=== PATIENT | male | born 1950 | race Caucasian/White ===

== ENCOUNTER → 2016-06-07 | Outpatient (CLI) | payer MEDICARE ==
[~2016-06-07] MED LIST: ACET-654 PO; ALLO15TA PO; ASCO25TA PO; FINA5TAB2 PO; FLOM5CAP PO; FLON1SPR; HYDR1OI TOP; INDA125TA PO; IRBE300T10 PO; MULT1TAB18 PO; NIZO2SHA TOP; VITA20008 PO
[2016-06-07 14:28] LABS: ALBUMIN 4.4 GM/DL (3.2-5.2); ALBUMIN/GLOBULIN RATIO 1.47 (1.00-1.93); ALKALINE PHOSPHATASE 52 U/L (45-117); ALT/SGPT 64 U/L (12-78); ANION GAP 7 MEQ/L (8-16); AST/SGOT 29 U/L (15-37); BILIRUBIN,TOTAL 0.8 MG/DL (0.2-1.0); BLOOD UREA NITROGEN 18 MG/DL (7-18); CALCIUM LEVEL 8.8 MG/DL (8.8-10.2); CARBON DIOXIDE LEVEL 30 MEQ/L (21-32); CHLORIDE LEVEL 102 MEQ/L (98-107); CHOLESTEROL LEVEL 179 MG/DL (<200); CREATININE FOR GFR 0.93 MG/DL (0.70-1.30); GLOMERULAR FILTRATION RATE > 60.0 (>49); GLUCOSE, FASTING 155 MG/DL (80-110); POTASSIUM SERUM 4.2 MEQ/L (3.5-5.1); SODIUM LEVEL 139 MEQ/L (136-145); TOTAL PROTEIN 7.4 GM/DL (6.4-8.2); TRIGLYCERIDES LEVEL 230 MG/DL (<150); URIC ACID 5.3 MG/DL (3.5-7.2)
== END ==
LOC: M WUC 09:04
PROVIDERS: ATTEND Internal Medicine
DX: Z00.00 Encounter for general adult medical examination without abnormal findings (principal); E78.5 Hyperlipidemia, unspecified; M10.00 Idiopathic gout, unspecified site; E03.9 Hypothyroidism, unspecified; E55.9 Vitamin D deficiency, unspecified; Z79.899 Other long term (current) drug therapy

== ENCOUNTER 2016-11-16 19:43 | Emergency (ER) | payer MEDICARE ==
[~2016-11-16] VITALS: Ht 182.9 cm; Wt 119.1 kg
[~2016-11-16 19:43] MED LIST changes: -ACET-654 PO; +ACET1TAB17 PO
[2016-11-16] MEDS ORDERED: SF1.1GEL (19:58)
[2016-11-16] MEDS ORDERED: ELIQ5TAB (19:58)
[2016-11-16] MEDS ORDERED: VESI5TAB2 (19:58)
[2016-11-16 20:30] LABS: BASO % 0.3 % (0.0-1.0); EOS # 0.1 10^3/uL (0.0-0.50); EOS % 0.4 % (0.0-3.0); IMMATURE GRANULOCYTE % 0.4 % (0-0); LYMPH # 0.7 10^3/uL (1.5-4.5); MEAN CORPUSCULAR HEMOGLOBIN 31.9 pg (27.0-33.0); MEAN CORPUSCULAR HGB CONC 35.8 g/dl (32.0-36.5); MONO # 0.7 10^3/uL (0.0-0.8); MONO % 5.8 % (0.0-5.0); NEUTROPHILS # 10.8 10^3/uL (1.8-7.7); NEUTROPHILS % 87.1 % (36.0-66.0); PLATELET COUNT, AUTOMATED 133 10^3/uL (150-450); RED CELL DISTRIBUTION WIDTH 12.3 % (11.5-14.5); WHITE BLOOD COUNT 12.4 10^3/uL (4.0-10.0)
[2016-11-16 20:35] LABS: ADD MORPHOLOGY? NO
[2016-11-16 20:41] LABS: INR 1.09
[2016-11-16 20:55] LABS: ALBUMIN 4.3 GM/DL (3.2-5.2); ALBUMIN/GLOBULIN RATIO 1.1 (1.00-1.93); BILIRUBIN,DIRECT 0.2 MG/DL (0.0-0.2); BILIRUBIN,TOTAL 0.8 MG/DL (0.2-1.0); CALCIUM LEVEL 9.4 MG/DL (8.8-10.2); CREATININE FOR GFR 1.44 MG/DL (0.70-1.30); GLOMERULAR FILTRATION RATE 52.1 (>49); POTASSIUM SERUM 3.7 MEQ/L (3.5-5.1); TOTAL PROTEIN 8.2 GM/DL (6.4-8.2)
--- NOTE | 2016-11-16 21:10 | REPUSA ---
CT of the head Clinical history: fall. Technique: Multiple axial CT images were obtained through the head without administration of contrast . Findings: The ventricles and sulci are symmetric bilaterally. There is no evidence of acute hemorrhag e or infarct. There is no midline shift, mass effect, or extra-axial fluid collection. The osseous st ructures are unremarkable. The visualized paranasal sinuses and mastoid air cells are clear. Impression: Negative study.
[2016-11-16] MEDS ORDERED: ISOVUE-370 76% 100ML VIAL (Q9967) As Ordered ONE (21:14)
[2016-11-16] MEDS ORDERED: NS 500 ML IV ONE ×2 (21:15→22:30)
[2016-11-16] MEDS ORDERED: MORPHINE 4 MG/ML 1ML SYRINGE IV ONE (21:45)
--- NOTE | 2016-11-16 22:00 | REPUSA ---
CT of the abdomen and pelvis with contrast Clinical statement: Pain. Fall. Technique: Multiple axial CT images were obtained from the base of the lungs through the floor of the pelvis utilizing 5 mm axial slices after administration of oral and nonionic intravenous contrast. C oronal and sagittal reconstructions were also obtained. No comparison is available. Findings: Chest: The visualized lung bases are clear. Abdomen: The liver is enlarged, measuring 26.9 cm in longest diameter. Diffuse low attenuation of the hepatic parenchyma is noted. No focal hepatic masses are seen. There is a tiny gallstone in the neck of the gallbladder. The spleen, pancreas, kidneys, and adrenal glands are unremarkable. The aorta is within normal limits. There is no evidence of abdominal lymphadenopathy or ascites. Pelvis: The bowel is unremarkable, with no obstructive or inflammatory changes. The appendix is tanner l. The urinary bladder is within normal limits. The other pelvic structures appear grossly intact. Th ere is no evidence of pelvic lymphadenopathy or ascites. Bones: There are no suspicious osseous abnormalities seen. Impression: 1. No acute traumatic injury appreciated. 2. Hepatomegaly with diffuse fatty infiltration of the liver. 3. Cholelithiasis without evidence of acute cholecystitis. 4. No obstructive or inflammatory bowel changes.
[2016-11-16] MEDS ORDERED: AMLO10TA PO (22:49)
[2016-11-16] MEDS ORDERED: SITA50TAB PO (22:50)
[2016-11-16] MEDS ORDERED: PERC5TAB12 PO (22:50)
[2016-11-16] MEDS ORDERED: COLA100C5 PO (22:51)
[2016-11-16 23:36] VITALS: BP 172/80
[2016-11-16] MEDS ORDERED: NORCO 5/325MG TABLET (BULK FOR ED) PO ONE (23:45)
--- NOTE | 2016-11-17 08:31 | ECGEPIP ---
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
== END 2016-11-17 00:04 | disposition home or self-care (01) ==
LOC: M ED 19:43
DX: S37.009A Unspecified injury of unspecified kidney, initial encounter (principal); W14.XXXA Fall from tree, initial encounter; Y92.099 Unspecified place in other non-institutional residence as the place of occurrence of the external cause; Y93.9 Activity, unspecified; Y99.9 Unspecified external cause status; N17.9 Acute kidney failure, unspecified; E11.9 Type 2 diabetes mellitus without complications; I48.91 Unspecified atrial fibrillation; I10 Essential (primary) hypertension; R00.1 Bradycardia, unspecified; R16.0 Hepatomegaly, not elsewhere classified; K76.0 Fatty (change of) liver, not elsewhere classified; K80.20 Calculus of gallbladder without cholecystitis without obstruction; Z85.6 Personal history of leukemia; Z92.21 Personal history of antineoplastic chemotherapy; Z95.0 Presence of cardiac pacemaker; Z79.899 Other long term (current) drug therapy; Z88.0 Allergy status to penicillin
CPT/HCPCS: 70450; 74177; 80048; 80076; 81001; 83690; 85025; 85610; 93005; 93041; 96374; 99285; Q9967

== ENCOUNTER → 2016-11-29 | Outpatient (CLI) | payer MEDICARE ==
[~2016-11-29] MED LIST changes: +AMLO10TA PO; +COLA100C5 PO; +ELIQ5TAB; +PERC5TAB12 PO; +SF1.1GEL; +SITA50TAB PO; +VESI5TAB2
== END ==
LOC: M WUC 11:08
PROVIDERS: ATTEND Internal Medicine Hematology
DX: E55.9 Vitamin D deficiency, unspecified (principal); I48.0 Paroxysmal atrial fibrillation; I10 Essential (primary) hypertension

== ENCOUNTER → 2016-11-29 | Outpatient (CLI) | payer MEDICARE ==
[2016-11-29 15:12] LABS: ANION GAP 6 MEQ/L (8-16); BLOOD UREA NITROGEN 15 MG/DL (7-18); CALCIUM LEVEL 9.8 MG/DL (8.8-10.2); CARBON DIOXIDE LEVEL 30 MEQ/L (21-32); CHLORIDE LEVEL 103 MEQ/L (98-107); CREATININE FOR GFR 0.84 MG/DL (0.70-1.30); GLOMERULAR FILTRATION RATE > 60.0 (>49); GLUCOSE, FASTING 235 MG/DL (80-110); POTASSIUM SERUM 3.8 MEQ/L (3.5-5.1); SODIUM LEVEL 139 MEQ/L (136-145)
== END ==
LOC: M WUC 11:04
PROVIDERS: ATTEND Internal Medicine
DX: I10 Essential (primary) hypertension (principal)

== ENCOUNTER → 2016-11-29 | Outpatient (CLI) | payer MEDICARE ==
[2016-11-29 14:49] LABS: MEAN CORPUSCULAR HEMOGLOBIN 32.3 pg (27.0-33.0); MEAN CORPUSCULAR HGB CONC 35.1 g/dl (32.0-36.5); RED CELL DISTRIBUTION WIDTH 12.3 % (11.5-14.5); WHITE BLOOD COUNT 4.4 10^3/uL (4.0-10.0)
[2016-11-29 15:11] LABS: ALBUMIN 4.2 GM/DL (3.2-5.2); ANION GAP 6 MEQ/L (8-16); BLOOD UREA NITROGEN 15 MG/DL (7-18); CALCIUM LEVEL 9.4 MG/DL (8.8-10.2); CARBON DIOXIDE LEVEL 30 MEQ/L (21-32); CHLORIDE LEVEL 102 MEQ/L (98-107); CREATININE FOR GFR 0.86 MG/DL (0.70-1.30); GLOMERULAR FILTRATION RATE > 60.0 (>49); GLUCOSE, FASTING 231 MG/DL (80-110); PHOSPHORUS LEVEL 2.4 MG/DL (2.5-4.9); POTASSIUM SERUM 3.8 MEQ/L (3.5-5.1); SODIUM LEVEL 138 MEQ/L (136-145)
== END ==
LOC: M WUC 11:00
PROVIDERS: ATTEND Nurse Practitioner Family
DX: I48.0 Paroxysmal atrial fibrillation (principal)

== ENCOUNTER → 2017-01-08 | Outpatient (CLI) | payer MEDICARE ==
[2017-01-08 12:59] LABS: ANION GAP 6 MEQ/L (8-16); BLOOD UREA NITROGEN 20 MG/DL (7-18); CALCIUM LEVEL 9.2 MG/DL (8.8-10.2); CARBON DIOXIDE LEVEL 31 MEQ/L (21-32); CHLORIDE LEVEL 105 MEQ/L (98-107); CREATININE FOR GFR 0.83 MG/DL (0.70-1.30); GLOMERULAR FILTRATION RATE > 60.0 (>49); GLUCOSE, FASTING 149 MG/DL (80-110); POTASSIUM SERUM 3.9 MEQ/L (3.5-5.1); SODIUM LEVEL 142 MEQ/L (136-145)
== END ==
LOC: M WUC 10:04
PROVIDERS: ATTEND Nurse Practitioner Family
DX: I10 Essential (primary) hypertension (principal)

== ENCOUNTER → 2017-06-10 | Outpatient (CLI) | payer MEDICARE ==
[2017-06-10 12:40] LABS: CHOLESTEROL LEVEL 152 MG/DL (<200); HDL CHOLESTEROL 34 MG/DL (>40); NON-HDL-C 118 MG/DL; TRIGLYCERIDES LEVEL 220 MG/DL (<150)
[2017-06-10 12:47] LABS: CREATININE, URINE 94.9 MG/DL; MALB URINE SIEMENS 18.3 MG/L; MAU/CREAT RATIO 19.2 MCG/MG (0.0-30.0)
[2017-06-10 15:22] LABS: ESTIMATED AVERAGE GLUCOSE 103 MG/DL (60-110); HEMOGLOBIN A1c 5.2 %
== END ==
LOC: M WUC 09:56
DX: I11.9 Hypertensive heart disease without heart failure (principal)
CPT/HCPCS: 83036

== ENCOUNTER → 2017-06-10 | Outpatient (CLI) | payer MEDICARE ==
[2017-06-10 12:40] LABS: ANION GAP 6 MEQ/L (8-16); BLOOD UREA NITROGEN 19 MG/DL (7-18); CALCIUM LEVEL 9.6 MG/DL (8.8-10.2); CARBON DIOXIDE LEVEL 30 MEQ/L (21-32); CHLORIDE LEVEL 103 MEQ/L (98-107); CREATININE FOR GFR 0.85 MG/DL (0.70-1.30); GLOMERULAR FILTRATION RATE > 60.0 (>49); GLUCOSE, FASTING 124 MG/DL (70-100); POTASSIUM SERUM 4.5 MEQ/L (3.5-5.1); SODIUM LEVEL 139 MEQ/L (136-145)
== END ==
LOC: M WUC 10:01
DX: I11.9 Hypertensive heart disease without heart failure (principal)

== ENCOUNTER → 2017-12-25 | Outpatient (CLI) | payer MEDICARE | LOC: M WUC 11:21 | DX: M51.36 Other intervertebral disc degeneration, lumbar region (principal); M51.37 Other intervertebral disc degeneration, lumbosacral region; M25.78 Osteophyte, vertebrae; M12.88 Other specific arthropathies, not elsewhere classified, other specified site; M54.5 Low back pain | CPT/HCPCS: 72110 ==

== ENCOUNTER → 2018-04-18 | Outpatient (CLI) | payer MEDICARE ==
[~2018-04-18] MED LIST changes: -ACET1TAB17 PO; +ACET1TAB55 PO; +FLOM0.4C39 PO; -FLOM5CAP PO
--- NOTE | 2018-04-18 13:53 | REP ---
Clinical: Subacute pain without history of trauma. Technique: AP view of the pelvis with neutral and frog lateral views of the left hip. Findings: Generalized age-related degenerative changes are appreciated. No acute fracture dislocation. No periarticular calcifications, or erosive changes. Impression: Generalized degenerative changes. No acute fracture or dislocation. Electronically Signed by Alfred Connelly MD 04/18/2018 01:45 P
== END ==
LOC: M WUC 12:58
PROVIDERS: ATTEND Physician Assistant
DX: M16.12 Unilateral primary osteoarthritis, left hip (principal)

== ENCOUNTER 2018-11-13 14:02 | Emergency (ER) | payer MEDICARE ==
[~2018-11-13] VITALS: Ht 182.9 cm; Wt 118.2 kg
[~2018-11-13 14:02] MED LIST changes: -ALLO15TA PO; +ALLO300T2 PO; -ASCO25TA PO; -ELIQ5TAB; +ELIQ5TAB PO; -HYDR1OI TOP; +HYDR1OIN2 TOP; +VITA1TAB23 PO
[2018-11-13] MEDS ORDERED: ACET-908 PO (14:30)
[2018-11-13] MEDS ORDERED: CARV12.5 PO (14:30)
[2018-11-13] MEDS ORDERED: LISI40TA PO (14:30)
[2018-11-13] MEDS ORDERED: IMBR1CAP PO (14:30)
[2018-11-13 15:51] LABS: HEMATOCRIT 39.5 % (42.0-52.0); HEMOGLOBIN 12.2 g/dl (13.5-17.5); MEAN CORPUSCULAR HEMOGLOBIN 31.7 pg (27.0-33.0); MEAN CORPUSCULAR HGB CONC 30.9 g/dl (32.0-36.5); MEAN CORPUSCULAR VOLUME 102.6 fl (80.0-96.0); RED BLOOD COUNT 3.85 10^6/uL (4.30-6.10)
--- NOTE | 2018-11-13 16:07 | REP ---
Left forearm: Two views. History: Swelling and pain after a fall. Findings: AP and lateral views of the left forearm demonstrate diffuse soft tissue swelling. There is spurring of the distal ulna and mild medial and lateral epicondylar spurring are noted at the elbow. Impression: No fracture noted. There is osteoarthritic spurring of the proximal and distal ulna. There is medial and lateral epicondylar spurring. There is diffuse moderate soft tissue swelling. Electronically Signed by Raymon Escalera MD 11/13/2018 03:59 P
--- NOTE | 2018-11-13 16:08 | REP ---
Left arm: Two views. History: Swelling and pain after fall. Findings: AP and lateral views of the left humerus demonstrate a pacemaker. There is osteoarthritic hypertrophy and end sclerosis at the AC joint. The glenohumeral articulation is normally aligned. Epicondylar spurring is noted. No fractures seen. Impression: Osteoarthritic changes. No fracture visible. Electronically Signed by Raymon Escalera MD 11/13/2018 04:00 P
[2018-11-13 16:15] LABS: PLATELET COUNT, AUTOMATED 96 10^3/uL (150-450)
[2018-11-13 16:17] LABS: ERYTHROCYTE SEDIMENTATION RATE 33 mm/hr (0-20)
[2018-11-13 16:18] LABS: BLOOD UREA NITROGEN 22 MG/DL (7-18); C REACTIVE PROTEIN QUANTITATIV 1.34 MG/DL (0.00-0.30); CALCIUM LEVEL 9.2 MG/DL (8.8-10.2); CARBON DIOXIDE LEVEL 28 MEQ/L (21-32); CHLORIDE LEVEL 100 MEQ/L (98-107); CREATININE FOR GFR 0.97 MG/DL (0.70-1.30); GLOMERULAR FILTRATION RATE > 60.0 (>49); GLUCOSE, FASTING 119 MG/DL (70-100); POTASSIUM SERUM 3.9 MEQ/L (3.5-5.1); SODIUM LEVEL 136 MEQ/L (136-145)
[2018-11-13 16:21] LABS: LYMPHOCYTES 97 % (16-44); MONOCYTES 1 % (0-5); NEUTROPHILS 2 % (28-66); PLATELET ESTIMATE DECREASED (NORMAL); SMUDGE CELLS 4+
--- NOTE | 2018-11-13 16:42 | REP ---
Left upper extremity deep vein duplex ultrasound for thrombus: The deep veins demonstrate normal compression, normal Doppler color flow and normal Doppler waveforms with respiration augmentation at multiple levels from the brachial veins to the jugular vein. A pacemaker is noted within the subclavian vein. Impression: There is no left upper extremity deep vein thrombus. Electronically Signed by Haider Argueta MD 11/13/2018 04:33 P
--- NOTE | 2018-11-13 16:45 | REP ---
Ultrasonography of the soft tissues at the left elbow: The patient fell and struck left elbow 1 week O and complains of increasing pain, redness, swelling and warmth in the area. Ultrasonography of this area of the elbow identifies a 8-0.8 x 1.0-0.97 complex fluid collection. There is diffuse soft tissue edema adjacent to this collection. With color Doppler assessment there is hyperemia in the surrounding soft tissues. The findings are compatible with hematoma versus abscess versus bursitis. Electronically Signed by Haider Argueta MD 11/13/2018 04:36 P
--- NOTE | 2018-11-13 16:49 | REP ---
Left elbow series: Five views. History: Swelling and pain after fall. Findings: Five views of the left elbow demonstrate diffuse moderate soft tissue swelling about the medial aspect of the elbow including the distal arm and the proximal forearm. There is no evidence of joint effusion. No fracture is seen. Mild coronoid process and medial epicondylar spurring are seen. Impression: Moderate soft tissue swelling diffusely about the medial aspect of the arm, elbow and forearm. Spurring of the coronoid process and medial epicondyle. No acute bony abnormality seen. Electronically Signed by Raymon Escalera MD 11/13/2018 04:54 P
[2018-11-13 16:52] LABS: ALBUMIN 4.5 GM/DL (3.2-5.2); ALT/SGPT 20 U/L (12-78); BILIRUBIN,DIRECT 0.2 MG/DL (0.0-0.2); BILIRUBIN,TOTAL 0.8 MG/DL (0.2-1.0); TOTAL PROTEIN 7.5 GM/DL (6.4-8.2)
[2018-11-13 21:00] VITALS: BP 168/78
[2018-11-13] MEDS ORDERED: CLINDAMYCIN 150 MG CAP PO ONE ×2 (21:00→21:45)
[2018-11-13] MEDS ORDERED: CLEO300C2 PO (21:24)
--- NOTE | 2018-11-14 06:44 | ED PDOC ---
Post-Departure Follow-Up dr epps faxed formal report of extrem us for fu Alma Wilhelm MD Nov 14, 2018 06:44
== END 2018-11-13 21:43 | disposition home or self-care (01) ==
LOC: M ED 14:02
DX: L03.114 Cellulitis of left upper limb (principal); S50.312A Abrasion of left elbow, initial encounter; W19.XXXA Unspecified fall, initial encounter; Y92.9 Unspecified place or not applicable; R60.0 Localized edema; I10 Essential (primary) hypertension; R73.03 Prediabetes; Z88.1 Allergy status to other antibiotic agents; Z79.899 Other long term (current) drug therapy; Z95.0 Presence of cardiac pacemaker

== ENCOUNTER → 2019-06-11 | Outpatient (CLI) | payer MEDICARE ==
[~2019-06-11] MED LIST changes: +ACET-908 PO; +CARV12.5 PO; +CLEO300C2 PO; +IMBR1CAP PO; -IRBE300T10 PO; +IRBE300T7 PO; +LISI40TA PO
[2019-06-11 12:50] LABS: HEMATOCRIT 41.8 % (42.0-52.0); HEMOGLOBIN 14.2 g/dl (13.5-17.5); MEAN CORPUSCULAR HEMOGLOBIN 31.7 pg (27.0-33.0); MEAN CORPUSCULAR VOLUME 93.3 fl (80.0-96.0); PLATELET COUNT, AUTOMATED 100 10^3/uL (150-450); RED BLOOD COUNT 4.48 10^6/uL (4.30-6.10)
[2019-06-11 13:10] LABS: WHITE BLOOD COUNT 23.7 10^3/uL (4.0-10.0)
[2019-06-11 13:12] LABS: ANISOCYTOSIS 1+; LYMPHOCYTES 79 % (16-44); MONOCYTES 4 % (0-5); NEUTROPHILS 17 % (28-66); POLYCHROMASIA 1+; SMUDGE CELLS 1+
[2019-06-11 13:13] LABS: PLATELET ESTIMATE DECREASED (NORMAL)
[2019-06-11 13:22] LABS: ALBUMIN 4.2 GM/DL (3.2-5.2); ALT/SGPT 27 U/L (12-78); BILIRUBIN,TOTAL 0.8 MG/DL (0.2-1.0); BLOOD UREA NITROGEN 25 MG/DL (7-18); CALCIUM LEVEL 9.2 MG/DL (8.8-10.2); CARBON DIOXIDE LEVEL 28 MEQ/L (21-32); CHLORIDE LEVEL 101 MEQ/L (98-107); CREATININE FOR GFR 1.01 MG/DL (0.70-1.30); GLOMERULAR FILTRATION RATE > 60.0 (>49); GLUCOSE, FASTING 238 MG/DL (70-100); LDH LACTATE DEHYDROGENASE 129 U/L (87-241); POTASSIUM SERUM 4.1 MEQ/L (3.5-5.1); SODIUM LEVEL 135 MEQ/L (136-145); TOTAL PROTEIN 7.5 GM/DL (6.4-8.2)
== END ==
LOC: M LAB 12:26
DX: C91.10 Chronic lymphocytic leukemia of B-cell type not having achieved remission (principal)

== ENCOUNTER 2019-10-24 17:55 | Emergency (ER) | payer MEDICARE ==
[~2019-10-24] VITALS: Ht 182.9 cm; Wt 120.2 kg
[~2019-10-24 17:55] MED LIST changes: +ASCO250T20 PO; -VITA1TAB23 PO
[2019-10-24] MEDS ORDERED: traMADol 50 MG TAB PO ONE ×2 (19:30→20:30)
[2019-10-24] MEDS ORDERED: ROBA750T4 PO (20:11)
[2019-10-24] MEDS ORDERED: ULTR50TA8 PO (20:11)
[2019-10-24 20:26] VITALS: BP 156/70
== END 2019-10-24 20:35 | disposition home or self-care (01) ==
LOC: M ED 17:55
DX: M62.830 Muscle spasm of back (principal); T21.24XA Burn of second degree of lower back, initial encounter; Z79.01 Long term (current) use of anticoagulants; Z88.1 Allergy status to other antibiotic agents; Z79.899 Other long term (current) drug therapy; Y92.9 Unspecified place or not applicable; Y93.9 Activity, unspecified; Y99.9 Unspecified external cause status; T31.0 Burns involving less than 10% of body surface

== ENCOUNTER → 2020-07-05 | Outpatient (CLI) | payer MEDICARE ==
[~2020-07-05] MED LIST changes: -ACET-908 PO; +ACET-910 PO; -LISI40TA PO; +LISI40TA4 PO; +ROBA750T4 PO; +ULTR50TA8 PO
[2020-07-05 12:33] LABS: CHOLESTEROL RISK RATIO 3.904 (<5)
[2020-07-05 12:41] LABS: CREATININE, URINE 65.1 MG/DL; MALB URINE SIEMENS 6.6 MG/L; MAU/CREAT RATIO 10.1 MCG/MG (0.0-30.0); TOTAL 25(OH) VITAMIN D 32.4 NG/ML (30.0-100.0)
[2020-07-05 13:24] LABS: HEMOGLOBIN A1c 8.5 %
== END ==
LOC: M WUC 10:26
PROVIDERS: ATTEND Internal Medicine
DX: Z51.81 Encounter for therapeutic drug level monitoring (principal); E11.9 Type 2 diabetes mellitus without complications; M81.0 Age-related osteoporosis without current pathological fracture; Z79.899 Other long term (current) drug therapy

== ENCOUNTER 2020-10-16 17:58 | Observation (INO) | payer MEDICARE ==
[~2020-10-16] VITALS: Ht 182.9 cm; Wt 114.3 kg
[2020-10-16] MEDS ORDERED: GABA-283 PO (18:58)
[2020-10-16] MEDS ORDERED: ACETAMINOPHEN TAB 650MG DOSE (2X325MG) PO ONE (19:35)
--- NOTE | 2020-10-16 19:57 | REP ---
INDICATION: fever covid positive COMPARISON: None. TECHNIQUE: Portable AP view of the chest FINDINGS: Patchy bilateral airspace disease consistent with multifocal pneumonia and COVID-19 pulmonary disease. No effusion. No pneumothorax. Mediastinum and cardiac silhouette are normal. Skeletal structures intact. IMPRESSION: Patchy bilateral airspace disease consistent with multifocal pneumonia and COVID-19 pulmonary disease. <Electronically signed by Alfred Connelly > 10/16/201952
[2020-10-16 20:13] LABS: BASO % 0.2 % (0.0-1.0); EOS % 0.2 % (0.0-3.0); HEMOGLOBIN 12.9 g/dl (13.5-17.5); LYMPH # 0.5 10^3/uL (1.5-5.0); LYMPH % 11.5 % (24.0-44.0); MEAN CORPUSCULAR HEMOGLOBIN 30.9 pg (27.0-33.0); MEAN CORPUSCULAR HGB CONC 33.9 g/dl (32.0-36.5); MEAN CORPUSCULAR VOLUME 91.1 fl (80.0-96.0); MONO # 0.5 10^3/uL (0.0-0.8); MONO % 11.7 % (2.0-8.0); NEUTROPHILS # 3.2 10^3/uL (1.5-8.5); NEUTROPHILS % 75.7 % (36.0-66.0); RED BLOOD COUNT 4.17 10^6/uL (4.30-6.10); WHITE BLOOD COUNT 4.2 10^3/uL (4.0-10.0)
[2020-10-16 20:43] LABS: PLATELET COUNT, AUTOMATED 79 10^3/uL (150-450)
[2020-10-16 20:46] LABS: ALBUMIN 3.3 GM/DL (3.2-5.2); ALT/SGPT 38 U/L (12-78); BILIRUBIN,TOTAL 0.5 MG/DL (0.2-1.0); BLOOD UREA NITROGEN 25 MG/DL (7-18); C REACTIVE PROTEIN QUANTITATIV 7.91 MG/DL (0.00-0.30); CALCIUM LEVEL 7.9 MG/DL (8.8-10.2); CARBON DIOXIDE LEVEL 23 MEQ/L (21-32); CHLORIDE LEVEL 105 MEQ/L (98-107); CK-MB VALUE MASS 1.2 NG/ML (<3.6); CPK CREATINE PHOSPHOKINASE 58 U/L (39-308); CREATININE FOR GFR 1.06 MG/DL (0.70-1.30); FERRITIN 1013 NG/ML (26-388); GLOMERULAR FILTRATION RATE > 60.0 (>42); GLUCOSE, FASTING 183 MG/DL (70-100); LDH LACTATE DEHYDROGENASE 226 U/L (87-241); MB/CK RELATIVE INDEX 2.07 (< OR =4); POTASSIUM SERUM 3.9 MEQ/L (3.5-5.1); SODIUM LEVEL 135 MEQ/L (136-145); TOTAL PROTEIN 6.5 GM/DL (6.4-8.2); TROPONIN I 0.02 NG/ML (< 0.10)
[2020-10-16 20:48] LABS: INR 1.23; PROTHROMBIN TIME 15.9 SECONDS (12.7-14.5)
[2020-10-16 20:49] LABS: PARTIAL THROMBOPLASTIN TIME 51.6 SECONDS (25.9-37.0)
[2020-10-16 20:52] LABS: D-DIMER QUANT 534.38 ng/ml (<500)
[2020-10-16] MEDS ORDERED: ISOVUE-370 76% 100ML VIAL As Ordered ONE (20:59)
--- NOTE | 2020-10-16 21:56 | REPVR ---
PROCEDURE INFORMATION: Exam: CTA Chest With Contrast Exam date and time: 10/16/2020 9:07 PM Age: 70 years old Clinical indication: SOB, COVID positive TECHNIQUE: Imaging protocol: Computed tomographic angiography of the chest with contrast. 3D rendering (Not supervised by radiologist): MIP and/or 3D reconstructed images were created by the technologist. Radiation optimization: All CT scans at this facility use at least one of these dose optimization techniques: automated exposure control; mA and/or kV adjustment per patient size (includes targeted exams where dose is matched to clinical indication); or iterative reconstruction. Contrast material: ISOVUE 370; Contrast volume: 75 ml; Contrast route: INTRAVENOUS (IV); COMPARISON: 1. CR Chest, 1 view 10/16/2020 7:[address] ABD/PEL W/IV CONTRAST ONLY 11/16/2016 9:20:49 PM FINDINGS: Tubes, catheters and devices: There is a left subclavian pacemaker device with leads in the right atrium and right ventricle. Pulmonary arteries: There is no pulmonary embolism in the main, lobar, or segmental pulmonary arteries. The timing of the contrast bolus was suboptimal for the assessment of the subsegmental pulmonary arteries, which are poorly opacified. Aorta: The thoracic aorta is intact and patent. There is no thoracic aortic aneurysm, pseudoaneurysm, penetrating atherosclerotic ulcer, intramural hematoma, or dissection. Great vessels off aortic arch: The brachiocephalic artery, imaged proximal portions of the common carotid arteries, imaged proximal portions of the vertebral arteries, and subclavian arteries are intact. No stenosis or occlusion of these vessels is noted. Incidental note is made of a bovine aortic arch, with common origin of the brachiocephalic artery and left common carotid artery from the aortic arch, which is a normal variant. Incidental note is made that the left vertebral artery originates directly from the aortic arch posterior to the origin of the left subclavian artery. Thyroid: Unremarkable. Trachea: Normal. Bronchial tree: Patent. Lungs: There are ground-glass opacities in a predominantly peripheral distribution in both lungs with areas of intralobular septal thickening ("crazy-paving"?) and superimposed consolidation. Pleural spaces: Normal. No pneumothorax or pleural effusion. Heart: No cardiomegaly or pericardial effusion. The ratio of the diameter of the right ventricle to the diameter of the left ventricle measures less than 1, which is within normal limits and there is no CT evidence for a right ventricular strain. There are coronary artery calcifications. Mediastinal space: No mediastinal mass, fluid collection, or pneumomediastinum. There is a small sliding hiatal hernia. Lymph nodes: There are subcentimeter mediastinal, bilateral hilar, and bilateral axillary lymph nodes. However, no abnormally enlarged lymph nodes measuring greater than 1 cm in short axis are noted. Liver: The attenuation of the liver is lower compared to the spleen, which can be seen with fatty liver infiltration. The liver was not fully imaged. Adrenal glands: There is a 1.5 cm left adrenal nodule, which measures approximately 26 Hounsfield units and has increased in size from [address] abdomen and pelvis on 11/16/2016 (image 229 of the axial series 401). The adrenals were not fully imaged. Bones/joints: There is no fracture or dislocation. No suspicious osteolytic or osteoblastic lesion. There are bridging paraspinal osteophytes at multiple contiguous levels in the thoracic spine, which are findings compatible with diffuse idiopathic skeletal hyperostosis. Soft tissues: Unremarkable. IMPRESSION: 1. No pulmonary embolism in the main, lobar, or segmental pulmonary arteries. The timing of the contrast bolus was suboptimal for the assessment of the subsegmental pulmonary arteries, which are poorly opacified. 2. Ground-glass opacities in a predominantly peripheral distribution in both lungs with areas of intralobular septal thickening ("crazy-paving"?) and superimposed consolidation, which are findings in keeping with the patient's history of COVID positive pneumonia. 3. 1.5 cm left adrenal nodule, which has increased in size from [address] abdomen and pelvis on 11/16/2016. If the patient has no cancer history, then consider follow-up non-emergent adrenal CT or resection. If the patient has a history of cancer, then consider biopsy or PET/CT. (Reference: Misti) 4. Fatty liver. COMMENTS: Consistent with the [employer]'s Incidental Findings Committee white paper (J Am Anant Radiol 2017): Any incidental adrenal lesion less than or equal to 1 cm is likely benign. No follow-up imaging is recommended for these lesions per consensus recommendations based on imaging criteria. Further lab evaluation could be pursued if warranted based on clinical findings. REFERENCES: Misti SAEZ, et al. Management of Incidental Adrenal Masses: A White Paper of the ACR Incidental Findings Committee. J Am Anant Radiol. 2017;14(8):0771-5098. Electronically signed by: Andreas Packer On 10/16/2020 21:56:26 PM
[2020-10-16] MEDS ORDERED: INDA25TAB PO (22:46)
[2020-10-16] MEDS ORDERED: GABA-282 PO (22:46)
[2020-10-16] MEDS ORDERED: D31000TA2 PO (22:46)
[2020-10-16] MEDS ORDERED: ALLO300T2 PO (22:46)
[2020-10-16] MEDS ORDERED: CARV25TA PO (22:46)
[2020-10-16] MEDS ORDERED: AMLO1TAB25 PO (22:46)
[2020-10-16] MEDS ORDERED: METF-838 PO (22:46)
[2020-10-16] MEDS ORDERED: THERTAB52 PO (22:46)
[2020-10-16] MEDS ORDERED: HOME MED LIST COMPLETE! XX SCH (22:50)
[2020-10-16] MEDS ORDERED: COMBIVENT RESPIMAT 100-20MCG INHALER 4GM INH PRN (23:20)
[2020-10-16] MEDS ORDERED: GLUCAGON INJ 1MG VIAL SC PRN (23:20)
[2020-10-16] MEDS ORDERED: DEXTROSE 50% 50 ML SYRINGE IV PRN (23:20)
[2020-10-16] MEDS ORDERED: GLUCOSE 4GM CHEW TABLET PO PRN (23:20)
--- NOTE | 2020-10-16 23:40 | HPEPDOC ---
General Date of Admission 10/16/20 Date of Service: Oct 16, 2020 Chief Complaint The patient is a 70-year-old male admitted with a reason for visit of +Covid 10/14/20. Source: Patient History of Present Illness Pranay Stoll is a 70yo M who is younger than his age but does ill appearance. Past medical history includes CLLsees oncologist in [place] (completed chemo 2 years ago except on continuous imbruvica) , diabetes, CLAUDIA, pacer, hypertension,gout. Patient reports that past week he noticed having some productive cough/phlegm production and associated nausea. He decided to go to urgent care on Saturday as he started having a fever and they tested him for Covid which was positive as patient has been taking Tylenol and the fever did not fariha he came to ED. Patient did not have Covid vaccine. Patient past 3 days endorses shortness of breath/ LINCOLN, fever, fatigue, productive cough. Patient tolerating room air 96%. Not tachycardic or tachypneic. He is notably hype rtensive 200/95 during admission. Patient reports he has been compliant with all his medications and his Systolic blood pressure typically runs in the 150s. He is about due for his home Coreg dose. He reports that he did not have time to update his oncologist on Saturday regarding his Covid diagnosis and had no further recommendations for any monoclonal antibodies at present, patient reports that he would only like additional medication such as monoclonal antibodies or remdesivir if he should become hypoxic. Of note, WBCs 12.4, no lactic acidosis chest x-ray + opacities. D-dimer elevated. CTA chest negative for PE but positive bilateral opacities questionable superimposed infection. Procalcitonin pending. Blood cultures pending. Patient will be observed for further evaluation management presenting concerns. Home Medications Scheduled Amlodipine Besylate (Amlodipine Besylate) 10 Mg Tablet, 10 MG PO DAILY, (Reported) Apixaban (Eliquis) 5 Mg Tab, 5 MG PO BID, (Reported) Carvedilol (Carvedilol) 25 Mg Tablet, 25 MG PO BID, (Reported) Cholecalciferol (Vitamin D3) (Vitamin D3) 1,000 Unit Tablet, 2,000 UNITS PO DAILY, (Reported) Gabapentin (Gabapentin) 300 Mg Capsule, 300 MG PO Q8H, (Reported) Ibrutinib (Imbruvica) 140 Mg Capsule, 420 MG PO QHS, (Reported) Indapamide (Indapamide) 2.5 Mg Tablet, 2.5 MG PO DAILY, (Reported) Lisinopril (Lisinopril) 40 Mg Tablet, 40 MG PO DAILY, (Reported) Metformin HCl (Metformin HCl ER) 500 Mg Tab.er.24h, 500 MG PO BID, (Reported) Multivitamin,Therapeutic (Thera-Tabs) 1 Each Tablet, 1 TAB PO DAILY, (Reported) allopurinoL (allopurinoL) 300 Mg Tablet, 300 MG PO DAILY, (Reported) Scheduled PRN Acetaminophen (Acetaminophen) 325 Mg Tablet, 650 MG PO Q8HP PRN for pain or fever, (Reported) Allergies Coded Allergies: clarithromycin (Verified Adverse Reaction, Mild, DIARRHEA, 11/13/18) Past Medical History Medical History CLLsees oncologist in [place] (completed chemo 2 years ago except on continuous imbruvica , diabetes, CLAUDIA, pacer, hypertension,gout Surgical History Pacemaker, TURP Family History Significant Family History: No pertinent family hx Social History Alcohol: Denies Drugs: denies Recent Travel/Sick Contacts: Denies: Recent travel, Recent sick contacts Psychosocial History: No pertinent psych hx , darvin A-FIB/CHADSVASC A-FIB History Current/History of A-Fib/PAF?: Yes Current PO Anticoag Therapy: Yes Review of Systems Constitutional: Reports: Fever, Fatigue; Denies: Chills, Night Sweats Eyes: Denies: Pain, Vision change ENT: Denies: Head Aches, Ear Pain, Dysphagia Skin: Denies: Rash, Lesions, Breakdown Pulmonary: Reports: Dyspnea, Cough Cardiovascular: Denies: Chest Pain, Palpitations, Orthopnea, Paroxysmal Noc. Dyspnea, Lt Headedness Gastrointestinal: Reports: Nausea; Denies: Vomiting, Abdominal Pain, Diarrhea Genitourinary: Denies: Dysuria, Frequency, Incontinence, Retention Hematologic: Denies: Bruising, Bleeding Excessively Musculoskeletal: Denies: Neck Pain, Back Pain, Joint Pain, Muscle Pain, Spasms Neurological: Denies: Weakness, Numbness, Change in speech, Confusion Psych: Reports: Mood Normal; Denies: Depression, Memory Issues Physical Examination General Exam: Positive: Alert, Cooperative, No Acute Distress Eye Exam: Positive: PERRLA, Conjunctiva & lids normal, EOMI; Negative: Sclera icteric ENT Exam: Positive: Atraumatic, Mucous membr. moist/pink, Pharynx Normal Neck Exam: Positive: Supple; Negative: JVD, thyromegaly Chest Exam: Positive: Rales Heart Exam: Positive: Rate Normal, Regular Rhythm, Normal S1, Normal S2; Negative: Murmurs, Rubs Telemetry: Positive: No significant arrhythmia Abdomen Exam: Positive: Normal bowel sounds, Soft; Negative: Tenderness, Hepatospenomegaly Extremity Exam: Positive: Normal pulses; Negative: Clubbing, Cyanosis, Edema Skin Exam: Positive: Nl turgor and temperature; Negative: Breakdown, Lesion Neuro Exam: Positive: Normal Gait, Normal Speech, Cranial Nerves 3-12 NL, Reflexes 2+ Psych Exam: Positive: Mental status NL, Mood NL, Oriented x 3 Vital Signs Vital Signs Date Time Temp Pulse Resp B/P (MAP) Pulse Ox O2 Delivery O2 Flow Rate FiO2 10/16/20 22:15 74 17 81 Room Air 10/16/20 21:00 192/84 (120) 10/16/20 17:58 101.1 Laboratory Data Labs 24H Laboratory Tests 2 10/16/20 19:44: Immature Granulocyte % (Auto) 0.7, Neutrophils (%) (Auto) 75.7H, Lymphocytes (%) (Auto) 11.5L, Monocytes (%) (Auto) 11.7H, Eosinophils (%) (Auto) 0.2, Basophils (%) (Auto) 0.2, Neutrophils # (Auto) 3.2, Lymphocytes # (Auto) 0.5L, Monocytes # (Auto) 0.5, Eosinophils # (Auto) 0.0, Basophils # (Auto) 0.0, Nucleated Red Blood Cells % (auto) 0.0, Immature Platelet Fraction 15.5H, Prothrombin Time 15.9H, Prothromb Time International Ratio 1.23, Activated Partial Thromboplast Time 51.6H, Fibrinogen 732H, D-Dimer, Quantitative 534.38H, Anion Gap 7L, Glomerular Filtration Rate > 60.0, Lactic Acid Level 1.6, Calcium Level 7.9L, M agnesium Level 2.0, Ferritin 1013H, Total Bilirubin 0.5, Aspartate Amino Transf (AST/SGOT) 22, Alanine Aminotransferase (ALT/SGPT) 38, Alkaline Phosphatase 58, Lactate Dehydrogenase 226, Total Creatine Kinase 58, Creatine Kinase MB 1.2, Creatine Kinase MB Relative Index 2.07, Troponin I 0.02, C-Reactive Protein, Quantitative 7.91H, Total Protein 6.5, Albumin 3.3, Albumin/Globulin Ratio 1.0, Procalcitonin <0.05 10/16/20 20:00: SARS Antigen (LFIA) POSITIVEH CBC/BMP Laboratory Tests 10/16/20 19:44 Microbiology Microbiology 10/16/20 Blood Culture, Received Pending 10/16/20 Blood Culture, Received Pending Assessment/Plan 1. Hypertensive urgency: Blood pressure elevated 198/82. Patient has a history of hypertension and takes multiple antihypertensives-reports compliance. -Monitor patient, continue home medications: Coreg, Lozol, lisinopril and Norvasc. -Patient with frequent coughing fits and this may be increasing his blood pressure during monitoring as noted during exam. - needed antihypertensive for systolic blood pressure greater than 160. 2. Covid pneumonia: CT chest positive opacities with possible superimposed infection. Patient tolerating room air. Procalcitonin pending. -Monitor patient respiratory status. -Monitor for worsening signs symptoms of infection; should procalcitonin be elevated will provide empiric antibiotic coverage. -Symptom management/supportive careantitussives and Combivent as needed -A.m. labs -Consider if patient begins becoming hypoxic, escalation to inpatient Covid regimen include steroids and remdesivir. -Consider clearance for monoclonal antibody in patient CLL who is already taking IMBRUTINIB. He reports his oncologist is in [place]. 3. Diabetes: Patient typically takes Metformin, on hold. Plan for Accu-Cheks before meals at bedtime and sliding scale insulin. Diabetic diet. A.m. labs. 4. Anemia in patient with CLL: Hemoglobin 12.9. Last lab work reveals baseline hemoglobin 12-14. Monitor for any overt bleeding. A.m. lab work. 5. PAF status post pacer: Telemetry. Continue Eliquis. DVT: Eliquis, SCD CODE STATUS: Full code Dispo planning: Anticipate home in a.m. -pending patient response. Plan / VTE VTE Prophylaxis Ordered?: Yes JEF PÉREZ NP Oct 16, 2020 23:35
[2020-10-17] VITALS (9 sets, daily range): BP systolic 135–156; BP diastolic 71–81; O2SAT 92–94
[2020-10-17] MEDS ORDERED: ACETAMINOPHEN TAB 650MG DOSE (2X325MG) PO PRN
[2020-10-17] MEDS: guaiFENesin 200 MG TAB PO SCH ×2 (02:05→09:18)
[2020-10-17] MEDS: APIXABAN 5 MG TAB (ELIQUIS) PO SCH ×2 (02:06→09:19)
[2020-10-17] MEDS: CARVedilol 12.5 MG TAB PO SCH ×2 (02:06→09:18)
[2020-10-17] MEDS: GABAPENTIN 300 MG CAP PO SCH ×2 (02:06→05:29)
[2020-10-17] MEDS ORDERED: ACETAMINOPHEN 500 MG TAB PO ONE (06:00)
--- NOTE | 2020-10-17 06:20 | ECGEPIP ---
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
[2020-10-17] MEDS ORDERED: HumaLOG INSULIN (NovoLOG) PER UNIT SC SCH ×2 (07:30→21:00)
[2020-10-17 08:07] LABS: BASO % 0.2 % (0.0-1.0); HEMATOCRIT 33.2 % (42.0-52.0); HEMOGLOBIN 11.4 g/dl (13.5-17.5); LYMPH # 0.6 10^3/uL (1.5-5.0); MEAN CORPUSCULAR HEMOGLOBIN 31.2 pg (27.0-33.0); MEAN CORPUSCULAR HGB CONC 34.3 g/dl (32.0-36.5); MONO # 0.7 10^3/uL (0.0-0.8); MONO % 12.9 % (2.0-8.0); NEUTROPHILS # 3.9 10^3/uL (1.5-8.5); NEUTROPHILS % 75.5 % (36.0-66.0); RED BLOOD COUNT 3.65 10^6/uL (4.30-6.10); WHITE BLOOD COUNT 5.1 10^3/uL (4.0-10.0)
[2020-10-17 08:21] LABS: PLATELET COUNT, AUTOMATED 80 10^3/uL (150-450)
[2020-10-17 08:30] LABS: BLOOD UREA NITROGEN 21 MG/DL (7-18); CALCIUM LEVEL 7.8 MG/DL (8.8-10.2); CARBON DIOXIDE LEVEL 22 MEQ/L (21-32); CHLORIDE LEVEL 104 MEQ/L (98-107); CREATININE FOR GFR 0.97 MG/DL (0.70-1.30); GLOMERULAR FILTRATION RATE > 60.0 (>42); GLUCOSE, FASTING 176 MG/DL (70-100); MAGNESIUM LEVEL 1.9 MG/DL (1.8-2.4); NT-PRO BNP 502 PG/ML (<125); POTASSIUM SERUM 3.4 MEQ/L (3.5-5.1); SODIUM LEVEL 134 MEQ/L (136-145); TROPONIN I 0.04 NG/ML (< 0.10)
[2020-10-17] MEDS ORDERED: allopurinoL 300 MG TAB PO SCH (09:00)
[2020-10-17] MEDS ORDERED: MULTIVITAMINS/MINERALS THERAP 1 TAB PO SCH (09:00)
[2020-10-17] MEDS ORDERED: VITAMIN D 1,000 INTERNATIONAL UNITS TABLET PO SCH (09:00)
[2020-10-17] MEDS ORDERED: INDAPAMIDE 1.25MG TABLET PO SCH (09:00)
[2020-10-17] MEDS ORDERED: lisinopriL 40 MG TAB PO SCH (09:00)
[2020-10-17] MEDS ORDERED: CHLO25TA PO (10:01)
[2020-10-17] MEDS ORDERED: POTASSIUM CHLORIDE 10 MEQ SR TABLET PO ONE (10:05)
[2020-10-17] MEDS ORDERED: CHLORTHALIDONE 25 MG TAB PO ONE (12:00)
--- NOTE | 2020-10-17 12:23 | DS.PDOC ---
Discharge Summary General Date of Admission Oct 16, 2020 at 17:59 Date of Discharge 10/17/20 Discharge Summary PROCEDURES PERFORMED DURING STAY: [None]. 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 HISTORY OF PRESENT ILLNESS: 70yo M who is younger than his age but does ill appearance. Past medical history includes CLLsees oncologist in [place] (completed chemo 2 years ago except on continuous imbruvica) , diabetes, CLAUDIA, pacer, hypertension,gout. Patient reports that past week he noticed having some productive cough/phlegm production and associated nausea. He decided to go to urgent care on Saturday as he started having a fever and they tested him for Covid which was positive as patient has been taking Tylenol and the fever did not fariha he came to ED. Patient did not have Covid vaccine. Patient past 3 days endorses shortness of breath/ LINCOLN, fever, fatigue, productive cough. Patient tolerating room air 96%. Not tachycardic or tachypneic. He is notably hypertensive 200/95 during admission. Patient reports he has been compliant with all his medications and his Systolic blood pressure typically runs in the 150s. He is about due for his home Coreg dose. He reports that he did not have time to update his oncologist on Saturday regarding his Covid diagnosis and had no further recommendations for any monoclonal antibodies at present, patient reports that he would only like additional medication such as monoclonal antibodies or remdesivir if he should become hypoxic. Of note, WBCs 12.4, no lactic acidosis chest x-ray + opacities. D-dimer elevated. CTA chest negative for PE but positive bilateral opacities questionable superimposed infection. Procalcitonin negative. Bl HOSPITAL COURSE: During hospital stay blood pressure was stabilized. In the morning patient was on room air. Afebrile He signed a consent for monoclonal antibody infusion. I added chlorthalidone to his medical regimen Patient was found to have increased adrenal nodule. Recommend follow-up with PCP for work-up DISCHARGE MEDICATIONS: Please see below. ALLERGIES: Please see below. PHYSICAL EXAMINATION ON DISCHARGE: VITAL SIGNS: Please see below. General Exam: Positive: Alert, Cooperative, No Acute Distress Eye Exam: Positive: PERRLA, Conjunctiva & lids normal, EOMI; Negative: Sclera icteric ENT Exam: Positive: Atraumatic, Mucous membr. moist/pink, Pharynx Normal Neck Exam: Positive: Supple; Negative: JVD, thyromegaly Chest Exam: Positive: Rales Heart Exam: Positive: Rate Normal, Regular Rhythm, Normal S1, Normal S2; Negative: Murmurs, Rubs Telemetry: Positive: No significant arrhythmia Abdomen Exam: Positive: Normal bowel sounds, Soft; Negative: Tenderness, Hepatospenomegaly Extremity Exam: Positive: Normal pulses; Negative: Clubbing, Cyanosis, Edema Skin Exam: Positive: Nl turgor and temperature; Negative: Breakdown, Lesion Neuro Exam: Positive: Normal Gait, Normal Speech, Cranial Nerves 3-12 NL, Reflexes 2+ Psych Exam: Positive: Mental status NL, Mood NL, Oriented x 3 LABORATORY DATA: Please see below. IMAGING: [facility] NAME: CHRISTINA PACHECO DATE OF : 1950 BUSINESS NUMBER: [id number] AGE: 70 SEX: M REPORT #: [id number] ROOM: ED TECHNOLOGIST: [place] [id number] DOCTOR: BLANCHE MULLINS MD Ordered for Date&Time: 10/16/202052 cc: [~ rep ct ivnm] Service Date&Time: 10/16/202106 This report is in Signed status. Interpretation performed by [facility]. Thank you for having your radiology procedures performed at [facility] RADIOLOGY REPORT Date&Time printed: [~ rep prt dt last] [~ rep prt tm last] Page 3 of 3 [place] [address] RADIOLOGY REPORT This report is in Signed status. Interpretation performed by [facility]. Thank you for having your radiology procedures performed at [facility] RADIOLOGY REPORT Date&Time printed: [~ rep prt dt last] [~ rep prt tm last] Page 1 of 3 IMPRESSION: 1. No pulmonary embolism in the main, lobar, or segmental pulmonary arteries. The timing of the contrast bolus was suboptimal for the assessment of the subsegmental pulmonary arteries, which are poorly opacified. 2. Ground-glass opacities in a predominantly peripheral distribution in both lungs with areas of intralobular septal thickening ("crazy-paving"?) and superimposed consolidation, which are findings in keeping with the patient's history of COVID positive pneumonia. 3. 1.5 cm left adrenal nodule, which has increased in size from [address] abdomen and pelvis on 11/16/2016. If the patient has no cancer history, then consider follow-up non-emergent adrenal CT or resection. If the patient has a history of cancer, then consider biopsy or PET/CT. (Reference: Misti) 4. Fatty liver. COMMENTS: Consistent with the [employer]'s Incidental Findings Committee white paper (J Am Anant Radiol 2017): Any incidental adrenal lesion less than or equal to 1 cm is likely benign. No follow-up imaging is recommended for these lesions per consensus recommendations based on imaging criteria. Further lab evaluation could be pursued if warranted based on clinical findings. REFERENCES: Misti SAEZ, et al. Management of Incidental Adrenal Masses: A White Paper of the ACR Incidental Findings Committee. J Am Anant Radiol. 2017;14(8):2780-9529. Electronically signed by: Andreas Greenwood On 10/16/2020 21:56:26 PM DD: ANDREAS GREENWOOD MD 10/16/202106 DT: JENS 10/16/202155 DS: ARIEL 10/16/202155 [~ rep ct labl] PROGNOSIS: Fair ACTIVITY: [As tolerated]. DIET: Cardiac DISPOSITION: 30 Still A Patient. DISCHARGE INSTRUCTIONS: Discharge for monoclonal antibody infusion ITEMS TO FOLLOWUP ON ON OUTPATIENT: Follow-up with build master/oncologist and PCP Work-up for increased adrenal node in the outpatient settings DISCHARGE CONDITION: [Stable]. TIME SPENT ON DISCHARGE: 40 minutes. Vital Signs/I&Os Vital Signs Date Time Temp Pulse Resp B/P (MAP) Pulse Ox O2 Delivery O2 Flow Rate FiO2 10/17/20 09:19 63 153/71 10/17/20 08:00 98.4 20 94 Nasal Cannula 2.0 I&O- Last 24 Hours up to 6 AM 10/17/20 06:00 Intake Total 300 ml Output Total 0 ml Balance 300 ml Laboratory Data Labs 24H Laboratory Tests 2 10/16/20 19:44: Immature Granulocyte % (Auto) 0.7, Neutrophils (%) (Auto) 75.7H, Lymphocytes (%) (Auto) 11.5L, Monocytes (%) (Auto) 11.7H, Eosinophils (%) (Auto) 0.2, Basophils (%) (Auto) 0.2, Neutrophils # (Auto) 3.2, Lymphocytes # (Auto) 0.5L, Monocytes # (Auto) 0.5, Eosinophils # (Auto) 0.0, Basophils # (Auto) 0.0, Nucleated Red Blood Cells % (auto) 0.0, Immature Platelet Fraction 15.5H, Prothrombin Time 15.9H, Prothromb Time International Ratio 1.23, Activated Partial Thromboplast Time 51.6H, Fibrinogen 732H, D-Dimer, Quantitative 534.38H, Anion Gap 7L, Glomerular Filtration Rate > 60.0, Lactic Acid Level 1.6, Calcium Level 7.9L, Magnesium Level 2.0, Ferritin 1013H, Total Bilirubin 0.5, Aspartate Amino Transf (AST/SGOT) 22, Alanine Aminotransferase (ALT/SGPT) 38, Alkaline Phosphatase 58, Lactate Dehydrogenase 226, Total Creatine Kinase 58, Creatine Kinase MB 1.2, Creatine Kinase MB Relative Index 2.07, Troponin I 0.02, C-Reactive Protein, Quantitative 7.91H, Total Protein 6.5, Albumin 3.3, Albumin/Globulin Ratio 1.0, Procalcitonin <0.05 10/16/20 20:00: SARS Antigen (LFIA) POSITIVEH 10/17/20 07:31: Immature Granulocyte % (Auto) 0.4, Neutrophils (%) (Auto) 75.5H, Lymphocytes (%) (Auto) 11.0L, Monocytes (%) (Auto) 12.9H, Eosinophils (%) (Auto) 0.0, Basophils (%) (Auto) 0.2, Neutrophils # (Auto) 3.9, Lymphocytes # (Auto) 0.6L, Monocytes # (Auto) 0.7, Eosinophils # (Auto) 0.0, Basophils # (Auto) 0.0, Nucleated Red Blood Cells % (auto) 0.0, Anion Gap 8, Glomerular Filtration Rate > 60.0, Calcium Level 7.8L, Magnesium Level 1.9, Troponin I 0.04#, C-Reactive Protein, Quantitative 10.40H, CJ-Hzy-M-Type Natriuretic Peptide 502H CBC/BMP Laboratory Tests 10/16/20 19:44 10/17/20 07:31 Microbiology Microbiology 10/16/20 Blood Culture, Received Pending 10/16/20 Blood Culture, Received Pending Discharge Medications Scheduled Amlodipine Besylate (Amlodipine Besylate) 10 Mg Tablet, 10 MG PO DAILY, (Reported) Apixaban (Eliquis) 5 Mg Tab, 5 MG PO BID, (Reported) Carvedilol (Carvedilol) 25 Mg Tablet, 25 MG PO BID, (Reported) Chlorthalidone (Chlorthalidone) 25 Mg Tablet, 25 MG PO BID Cholecalciferol (Vitamin D3) (Vitamin D3) 1,000 Unit Tablet, 2,000 UNITS PO DAILY, (Reported) Gabapentin (Gabapentin) 300 Mg Capsule, 300 MG PO Q8H, (Reported) Ibrutinib (Imbruvica) 140 Mg Capsule, 420 MG PO QHS, (Reported) Lisinopril (Lisinopril) 40 Mg Tablet, 40 MG PO DAILY, (Reported) Metformin HCl (Metformin HCl ER) 500 Mg Tab.er.24h, 500 MG PO BID, (Reported) Multivitamin,Therapeutic (Thera-Tabs) 1 Each Tablet, 1 TAB PO DAILY, (Reported) allopurinoL (allopurinoL) 300 Mg Tablet, 300 MG PO DAILY, (Reported) Scheduled PRN Acetaminophen (Acetaminophen) 325 Mg Tablet, 650 MG PO Q8HP PRN for pain or fever, (Reported) Allergies Coded Allergies: pneumococcal vaccine (Verified Allergy, Unknown, 10/17/20) clarithromycin (Verified Adverse Reaction, Mild, DIARRHEA, 11/13/18) RAE TEMPLETON DO Oct 17, 2020 12:22
[2020-10-18] MEDS ORDERED: CHLORTHALIDONE 25 MG TAB PO SCH (09:00)
== END 2020-10-17 10:39 | disposition still patient (30) ==
LOC: M ED 17:58 → M ED INP 17:59 → ENRESERV 10-17 00:06 → M 4MAIN 10-17 01:19
PROVIDERS: ADMIT Family Medicine; ATTEND Family Medicine
DX: J12.82 Pneumonia due to coronavirus disease 2019 (principal); U07.1 COVID-19; I16.0 Hypertensive urgency; I48.0 Paroxysmal atrial fibrillation; I10 Essential (primary) hypertension; E27.9 Disorder of adrenal gland, unspecified; E11.9 Type 2 diabetes mellitus without complications; G47.33 Obstructive sleep apnea (adult) (pediatric); M10.9 Gout, unspecified; Z95.0 Presence of cardiac pacemaker; D63.0 Anemia in neoplastic disease; C91.10 Chronic lymphocytic leukemia of B-cell type not having achieved remission; Z92.21 Personal history of antineoplastic chemotherapy; Z79.01 Long term (current) use of anticoagulants; Z79.899 Other long term (current) drug therapy; Z88.7 Allergy status to serum and vaccine; Z88.1 Allergy status to other antibiotic agents

== ENCOUNTER 2020-10-17 10:40 | Outpatient (CLI) | payer MEDICARE ==
[~2020-10-17] VITALS: Ht 182.9 cm; Wt 114.3 kg
[~2020-10-17 10:40] MED LIST changes: +AMLO1TAB25 PO; +CARV25TA PO; +CHLO25TA PO; +D31000TA2 PO; +GABA-282 PO; +GABA-283 PO; +INDA25TAB PO; +METF-838 PO; +THERTAB52 PO
[2020-10-17] MEDS ORDERED: NS 1,000 ML IV SCH (11:00)
[2020-10-17 11:44] VITALS: BP 137/65
[2020-10-17] MEDS ORDERED: ALBUTEROL 90 MCG/ACT 8GM HFA INHALER INH PRN (12:00)
[2020-10-17] MEDS ORDERED: methylPREDNISolone 125MG 2ML VIAL IV PRN (12:00)
[2020-10-17] MEDS ORDERED: CASIRIVIMAB/IMDEVIMAB 1,200 MG in NS 250 ML IV ONE (12:00)
[2020-10-17] MEDS ORDERED: diphenhydrAMINE 50MG/ML VIAL (J1200) IV PRN (12:00)
[2020-10-17] MEDS ORDERED: ALBUTEROL SULFATE 2.5 MG/0.5 ML INH NEB SOLN INH PRN (12:00)
[2020-10-17] MEDS ORDERED: EPINEPHrine INJ 1 MG/ML 1ML AMP IM PRN (12:00)
[2020-10-17 12:05] VITALS: BP 134/60
== END 2020-10-17 14:30 | disposition home or self-care (01) ==
LOC: M 4MAIN 10:40 → M OPCLI4 10:40
PROVIDERS: ATTEND Internal Medicine
DX: U07.1 COVID-19 (principal); Z88.1 Allergy status to other antibiotic agents; Z88.7 Allergy status to serum and vaccine

== ENCOUNTER 2020-10-19 14:00 | Inpatient (IN) | payer MEDICARE ==
[~2020-10-19] VITALS: Ht 182.9 cm; Wt 113.6 kg
--- NOTE | 2020-10-19 16:27 | REP ---
INDICATION: CHEST PAIN. COMPARISON: Comparison portable chest x-ray October 16, 2020. TECHNIQUE: Portable upright AP chest radiograph. FINDINGS: Progressive patchy could pulmonary parenchymal consolidation is seen right upper lobe, right lower lobe, left lower lobe consistent with pneumonia. These infiltrates are more opaque and larger than on the prior study. Heart size is borderline. A bipolar pacemaker is seen in place. There are surgical clips in the supraclavicular soft tissues on the right. IMPRESSION: Radiographically progressive bilateral pneumonia. <Electronically signed by Franck Escalera > 10/19/20 [id number]
[2020-10-19 16:59] LABS: BASO % 0.4 % (0.0-1.0); EOS % 0.4 % (0.0-3.0); HEMATOCRIT 33.2 % (42.0-52.0); HEMOGLOBIN 11.5 g/dl (13.5-17.5); LYMPH # 0.6 10^3/uL (1.5-5.0); LYMPH % 11.4 % (24.0-44.0); MEAN CORPUSCULAR HEMOGLOBIN 31.3 pg (27.0-33.0); MEAN CORPUSCULAR HGB CONC 34.6 g/dl (32.0-36.5); MEAN CORPUSCULAR VOLUME 90.2 fl (80.0-96.0); MONO # 0.7 10^3/uL (0.0-0.8); MONO % 12.3 % (2.0-8.0); NEUTROPHILS # 4.2 10^3/uL (1.5-8.5); PLATELET COUNT, AUTOMATED 104 10^3/uL (150-450); RED BLOOD COUNT 3.68 10^6/uL (4.30-6.10); WHITE BLOOD COUNT 5.5 10^3/uL (4.0-10.0)
[2020-10-19 17:17] LABS: C REACTIVE PROTEIN QUANTITATIV 12.9 MG/DL (0.00-0.30); MAGNESIUM LEVEL 2.2 MG/DL (1.8-2.4)
[2020-10-19 17:24] LABS: ALBUMIN 2.7 GM/DL (3.2-5.2); ALT/SGPT 47 U/L (12-78); BILIRUBIN,DIRECT 0.2 MG/DL (0.0-0.2); BILIRUBIN,TOTAL 0.7 MG/DL (0.2-1.0); BLOOD UREA NITROGEN 25 MG/DL (7-18); CALCIUM LEVEL 7.8 MG/DL (8.8-10.2); CARBON DIOXIDE LEVEL 24 MEQ/L (21-32); CHLORIDE LEVEL 103 MEQ/L (98-107); CK-MB VALUE MASS < 1.0 NG/ML (<3.6); CPK CREATINE PHOSPHOKINASE 69 U/L (39-308); CREATININE FOR GFR 0.94 MG/DL (0.70-1.30); GLOMERULAR FILTRATION RATE > 60.0 (>42); GLUCOSE, FASTING 177 MG/DL (70-100); MB/CK RELATIVE INDEX 1.45 (< OR =4); NT-PRO BNP 85 PG/ML (<125); POTASSIUM SERUM 3.9 MEQ/L (3.5-5.1); SODIUM LEVEL 133 MEQ/L (136-145); TROPONIN I < 0.02 NG/ML (< 0.10)
[2020-10-19] MEDS ORDERED: ISOVUE-370 76% 100ML VIAL As Ordered ONE (18:01)
--- NOTE | 2020-10-19 20:12 | ECGEPIP ---
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
--- NOTE | 2020-10-19 21:09 | REPVR ---
PROCEDURE INFORMATION: Exam: CTA Chest With Contrast Exam date and time: 10/19/2020 8:23 PM Age: 70 years old Clinical indication: Shortness of breath; Additional info: SOB, hemoptysis TECHNIQUE: Imaging protocol: Computed tomographic angiography of the chest with contrast. 3D rendering (Not supervised by radiologist): MIP and/or 3D reconstructed images were created by the technologist. Radiation optimization: All CT scans at this facility use at least one of these dose optimization techniques: automated exposure control; mA and/or kV adjustment per patient size (includes targeted exams where dose is matched to clinical indication); or iterative reconstruction. Contrast material: ISOVUE 370; Contrast volume: 75 ml; Contrast route: INTRAVENOUS (IV); COMPARISON: CT ANGIO CHEST 10/16/2020 8:59 PM FINDINGS: Pulmonary arteries: There are no pulmonary emboli. Aorta: There is fusiform dilatation of the ascending thoracic aorta which measures 4.1 cm. maximally. There is no dissection or saccular component. Lungs: Multiple bilateral geographic ground-glass, semi-solid and solid pulmonary parenchymal opacities several with rounded configuration. Findings consistent with multifocal pneumonitis, likely viral. Pleural spaces: Unremarkable. No pneumothorax. No pleural effusion. Heart: Unremarkable. No cardiomegaly. No pericardial effusion. Lymph nodes: Multiple mediastinal lymph nodes measuring up to 1.8 cm in the retrocaval pretracheal area, likely postinflammatory. Gallbladder and bile ducts: Cholelithiasis. Bones/joints: The spine demonstrates mild degenerative changes. Soft tissues: Unremarkable. IMPRESSION: 1. Multiple bilateral geographic ground-glass, semi-solid and solid pulmonary parenchymal opacities several with rounded configuration. Findings consistent with multifocal pneumonitis, likely viral. 2. There is fusiform dilatation of the ascending thoracic aorta which measures 4.1 cm. maximally. There is no dissection or saccular component. 3. There are no pulmonary emboli. Electronically signed by: Rene August On 10/19/2020 21:08:50 PM
[2020-10-19] MEDS ORDERED: dexameTHASONE 20MG/5ML VIAL (J1100 PER 1MG) IV ONE (22:10)
[2020-10-19] MEDS ORDERED: guaiFENesin 200 MG TAB PO PRN (22:25)
[2020-10-19] MEDS ORDERED: DEXTROSE 50% 50 ML SYRINGE IV PRN (22:25)
[2020-10-19] MEDS ORDERED: GLUCAGON INJ 1MG VIAL SC PRN (22:25)
[2020-10-19] MEDS ORDERED: COMBIVENT RESPIMAT 100-20MCG INHALER 4GM INH PRN (22:25)
[2020-10-19] MEDS ORDERED: GLUCOSE 4GM CHEW TABLET PO PRN (22:25)
[2020-10-19] MEDS ORDERED: ACETAMINOPHEN TAB 650MG DOSE (2X325MG) PO PRN (22:25)
--- NOTE | 2020-10-19 22:31 | HPEPDOC ---
[facility] Medical History & Physical Date of Admission Oct 19, 2020 Date of Service: Oct 19, 2020 Attending Physician: CAMILLE FERNANDEZ DO History and Physical CHIEF COMPLAINT: [70 y/o male recently diagnosed with COVID19 c/o malaise, sob x7-10 days] HISTORY OF PRESENT ILLNESS: [This is a 70 y/o male with a pmh of a-fib s/p pacemaker, CLL on maintenance chemotherapy, htn, osiris on cpap, bph s/p turp, niddm2 who presents to our ED on 10/19 with a cc of malaise, sob for 7-10 days and was recently diagnosed with COVID. Patient was originally diagnosed at local urgent care after believing that he had a sinus infection. Patient states that he was sent home but continued to feel unwell so on monday 10/16 he decided to come to the ED for evaluation. Patient at that time was found to have covid pna but was not hypoxic so was kept for overnight observation and was discharged after monoclonal antibody infusion. Patient states that he has continued to feel unwell with fatigue, cough productive of yellowish sputum, fever and malaise. Patient has also developed sob that is better with rest. Patient also admits to have one large dark colored stool today, but not explicitly diarrhea. Patient, at the time of my exam, denies chest pain, chest pressure, hemoptysis, abd pain, n/v, pedal edema, calf pain. Patient states that he has received all three doses of his covid vaccine. ] PAST MEDICAL HISTORY: 1. [See HPI PAST SURGICAL HISTORY: 1. [Pacemaker placement]. 2. [TURP]. 3. [Colonoscopy]. SOCIAL HISTORY: Tobacco use:[Denies] ETOH: [Occasional] Illicit drug use: [Denies] FAMILY HISTORY: Reviewed - none pertinent ALLERGIES: Please see below. REVIEW OF SYSTEMS: CONSTITUTIONAL: [See HPI]. HEENT: [See HPI]. CARDIOVASCULAR: [Denies chest pain, palpitations]. RESPIRATORY: [See HPI]. GASTROINTESTINAL: [See HPI]. GENITOURINARY: [Denies dysuria]. SKIN: [Denies rash]. MUSCULOSKELETAL: [Denies acute joint/back pain]. NEUROLOGICAL: [Denies syncope paresthesias]. ENDOCRINE: [Hx of DM]. HEMATOLOGIC/LYMPHATIC: [Hx of CLL]. HOME MEDICATIONS: Please see below. PHYSICAL EXAMINATION: VITAL SIGNS: Please see below. GENERAL APPEARANCE: [This is an ill appearing 70 y/o male. He is alert and oriented to all questioning. He has acutely increased work of breathing.]. HEENT: [No mass or lesion. EOMI. No scleral icterus. Nares patent. Oral mucosa moist]. CARDIOVASCULAR: [Regular rate, rhythm. No murmurs, rubs, gallops]. LUNGS: [Decreased breath sounds. No wheezing, rales, rhonchi]. ABDOMEN: [Soft, nontender]. MUSCULOSKELETAL: [No joint deformity]. EXTREMITIES: [No pedal edema appreciated. No overlying skin changes. Pulses intact]. NEUROLOGICAL: [Speech clear. A+Ox3. No focal deficits]. PSYCHIATRIC: [Mood and affect appear appropriate.]. LABORATORY DATA: See below. IMAGING: [CXR: FINDINGS: Progressive patchy could pulmonary parenchymal consolidation is seen right upper lobe, right lower lobe, left lower lobe consistent with pneumonia. These infiltrates are more opaque and larger than on the prior study. Heart size is borderline. A bipolar pacemaker is seen in place. There are surgical clips in the supraclavicular soft tissues on the right. IMPRESSION: Radiographically progressive bilateral pneumonia. CTA Chest: FINDINGS: Pulmonary arteries: There are no pulmonary emboli. Aorta: There is fusiform dilatation of the ascending thoracic aorta which measures 4.1 cm. maximally. There is no dissection or saccular component. Lungs: Multiple bilateral geographic ground-glass, semi-solid and solid pulmonary parenchymal opacities several with rounded configuration. Findings consistent with multifocal pneumonitis, likely viral. Pleural spaces: Unremarkable. No pneumothorax. No pleural effusion. Heart: Unremarkable. No cardiomegaly. No pericardial effusion. Lymph nodes: Multiple mediastinal lymph nodes measuring up to 1.8 cm in the retrocaval pretracheal area, likely postinflammatory. Gallbladder and bile ducts: Cholelithiasis. Bones/joints: The spine demonstrates mild degenerative changes. Soft tissues: Unremarkable. IMPRESSION: 1. Multiple bilateral geographic ground-glass, semi-solid and solid pulmonary parenchymal opacities several with rounded configuration. Findings consistent with multifocal pneumonitis, likely viral. 2. There is fusiform dilatation of the ascending thoracic aorta which measures 4.1 cm. maximally. There is no dissection or saccular component. 3. There are no pulmonary emboli. ] MICROBIOLOGY: Please see below. ASSESSMENT: [This is a 70 y/o male with a pmh of a-fib s/p pacemaker, CLL on maintenance chemotherapy, htn, osiris on cpap, bph s/p turp, niddm2 who presents to our ED on 10/19 with a cc of malaise, sob for 7-10 days and was recently diagnosed with COVID.]. . PLAN: 1. [COVID Pneumonia - Imaging performed in the ED shows progression of COVID pneumonia - Patient hypoxic in the ED - as of the writing of this note, patient currently requiring 4L nasal cannula - Patient is at high risk for poor outcome d/t bmi, cancer, age, multiple other comorbidities - Will begin remdesevir/dexamethasone protocol - Supplemental o2 titrated to >90 - Combivents, robitussin for symptoms relief - Tylenol for fevers - trend inflammatory markers - admit to med surg for tx 2. A-fib s/p pacer - telemetry - continue eliquis, carvedilol 3. CLL - continue patients at home ibrutinib - patients current hb is 11.5 - close to his baseline - patient did c/o some dark stools, will run stool occult to r/o gi bleed 4. DM - sliding scale coverage - hypoglycemic protocol - continue gabapentin 5. HTN - continue lisinopril, amlodipine 6. Gout - continue allopurinol DVT prophylaxis - pt on eliquis]. Vital Signs Vital Signs Date Time Temp Pulse Resp B/P (MAP) Pulse Ox O2 Delivery O2 Flow Rate FiO2 10/19/20 21:31 62 19 140/63 (88) 96 Room Air 4.0 10/19/20 14:14 98.0 Laboratory Data Labs 24H Laboratory Tests 2 10/19/20 16:29: Immature Granulocyte % (Auto) 0.5, Neutrophils (%) (Auto) 75.0H, Lymphocytes (%) (Auto) 11.4L, Monocytes (%) (Auto) 12.3H, Eosinophils (%) (Auto) 0.4, Basophils (%) (Auto) 0.4, Neutrophils # (Auto) 4.2, Lymphocytes # (Auto) 0.6L, Monocytes # (Auto) 0.7, Eosinophils # (Auto) 0.0, Basophils # (Auto) 0.0, Nucleated Red Blood Cells % (auto) 0.0, Fibrinogen 831H, D-Dimer, Quantitative 1034.49H, Anion Gap 6L, Glomerular Filtration Rate > 60.0, Calcium Level 7.8L, Magnesium Level 2.2, Ferritin 1473H, Total Bilirubin 0.7, Direct Bilirubin 0.2, Aspartate Amino Transf (AST/SGOT) 47H, Alanine Aminotransferase (ALT/SGPT) 47, Alkaline Phosphatase 57, Lactate Dehydrogenase 372H, Total Creatine Kinase 69, Creatine Kinase MB < 1.0, Creatine Kinase MB Relative Index 1.45, Troponin I < 0.02, C- Reactive Protein, Quantitative 12.90H, JR-Ibs-L-Type Natriuretic Peptide 85, Total Protein 6.0L, Albumin 2.7L, Albumin/Globulin Ratio 0.8, Procalcitonin 0.05, Thyroid Stimulating Hormone (TSH) 1.650, Free Thyroxine 1.30 10/19/20 16:30: Lactic Acid Level 2.0 CBC/BMP Laboratory Tests 10/19/20 16:29 Microbiology Microbiology 10/19/20 Blood Culture, Received Pending 10/19/20 Blood Culture, Received Pending Home Medications Scheduled Amlodipine Besylate (Amlodipine Besylate) 10 Mg Tablet, 10 MG PO DAILY Apixaban (Eliquis) 5 Mg Tab, 5 MG PO BID Carvedilol (Carvedilol) 25 Mg Tablet, 25 MG PO BID Cholecalciferol (Vitamin D3) (Vitamin D3) 1,000 Unit Tablet, 2,000 UNITS PO DAILY Gabapentin (Gabapentin) 300 Mg Capsule, 300 MG PO Q8H Ibrutinib (Imbruvica) 140 Mg Capsule, 420 MG PO QHS Indapamide (Indapamide) 2.5 Mg Tablet, 2.5 MG PO DAILY Lisinopril (Lisinopril) 40 Mg Tablet, 40 MG PO DAILY Metformin HCl (Metformin HCl ER) 500 Mg Tab.er.24h, 500 MG PO BID TAKES WITH 500MG FOR 1000MG TOTAL Metformin HCl (Metformin HCl) 500 Mg Tablet, 500 MG PO BID TAKES WITH 500MG ER FOR 1000MG TOTAL Multivitamin,Therapeutic (Thera-Tabs) 1 Each Tablet, 1 TAB PO DAILY allopurinoL (allopurinoL) 300 Mg Tablet, 300 MG PO DAILY Allergies Coded Allergies: pneumococcal vaccine (Verified Allergy, Unknown, 10/17/20) clarithromycin (Verified Adverse Reaction, Mild, DIARRHEA, 11/13/18) A-FIB/CHADSVASC A-FIB History Current/History of A-Fib/PAF?: Yes Current PO Anticoag Therapy: Yes SEBAS ZARATE Oct 19, 2020 22:31
[2020-10-19] MEDS: NS 1,000 ML IV SCH (23:02)
[2020-10-19] MEDS: HumaLOG INSULIN (NovoLOG) PER UNIT SC SCH (23:02)
[2020-10-19 23:23] LABS: APPEARANCE, URINE CLEAR (CLEAR); BACTERIA, URINE AUTO NEGATIVE (NEGATIVE); BILIRUBIN, URINE AUTO NEGATIVE (NEGATIVE); BLOOD, URINE BLOOD NEGATIVE (NEGATIVE); COLOR, URINE YELLOW (YELLOW); GLUCOSE, URINE (UA) AUTO NEGATIVE (NEGATIVE); KETONE, URINE AUTO NEGATIVE (NEGATIVE); LEUKOCYTE ESTERASE, URINE AUTO NEGATIVE (NEGATIVE); NITRITE, URINE AUTO NEGATIVE (NEGATIVE); PROTEIN, URINE AUTO NEGATIVE (NEGATIVE); RBC, URINE AUTO 1 /HPF (0-3); SPECIFIC GRAVITY URINE AUTO 1.039 (1.002-1.035); SQUAMOUS EPITHELIAL CELL UR AU 0 /HPF (0-6); WBC, URINE AUTO 0 /HPF (0-3)
[2020-10-19 23:53] VITALS: BP 138/64
[2020-10-20] VITALS (11 sets, daily range): BP systolic 115–150; BP diastolic 59–67; O2SAT 92–95
[2020-10-20] MEDS ORDERED: INDA25TAB PO (01:30)
[2020-10-20] MEDS ORDERED: METF-839 PO (01:30)
[2020-10-20] MEDS ORDERED: REMDESIVIR 200 MG in NS 250 ML IV ONE (02:00)
[2020-10-20] MEDS ORDERED: HOME MED LIST COMPLETE! XX SCH (02:40)
[2020-10-20] MEDS ORDERED: SODIUM CHLORIDE 0.9% INJ 10 ML SYR IV ONE (04:00)
[2020-10-20] MEDS: GABAPENTIN 300 MG CAP PO SCH ×3 (06:29→21:03)
[2020-10-20] MEDS: NS 1,000 ML IV SCH (06:29)
[2020-10-20] MEDS: HumaLOG INSULIN (NovoLOG) PER UNIT SC SCH ×4 (09:24→21:18)
[2020-10-20] MEDS: dexameTHASONE 4 MG/ML 1ML VIAL (J1100 PER 1MG) IV SCH (09:24)
[2020-10-20] MEDS: allopurinoL 300 MG TAB PO SCH (09:25)
[2020-10-20] MEDS: lisinopriL 40 MG TAB PO SCH (09:25)
[2020-10-20] MEDS: APIXABAN 5 MG TAB (ELIQUIS) PO SCH ×2 (09:25→21:01)
[2020-10-20] MEDS: CARVedilol 12.5 MG TAB PO SCH ×2 (09:25→21:03)
[2020-10-20] MEDS: INDAPAMIDE 1.25MG TABLET PO SCH (09:25)
[2020-10-20] MEDS: DOCUSATE SODIUM 100MG CAPSULE PO SCH ×2 (09:25→21:01)
[2020-10-20 09:35] LABS: HEMATOCRIT 33.5 % (42.0-52.0); HEMOGLOBIN 11.6 g/dl (13.5-17.5); LYMPH # 0.3 10^3/uL (1.5-5.0); LYMPH % 9.4 % (24.0-44.0); MEAN CORPUSCULAR HEMOGLOBIN 31.2 pg (27.0-33.0); MEAN CORPUSCULAR HGB CONC 34.6 g/dl (32.0-36.5); MEAN CORPUSCULAR VOLUME 90.1 fl (80.0-96.0); MONO # 0.3 10^3/uL (0.0-0.8); MONO % 6.9 % (2.0-8.0); NEUTROPHILS % 83.1 % (36.0-66.0); PLATELET COUNT, AUTOMATED 100 10^3/uL (150-450); RED BLOOD COUNT 3.72 10^6/uL (4.30-6.10); WHITE BLOOD COUNT 3.6 10^3/uL (4.0-10.0)
[2020-10-20 10:02] LABS: BLOOD UREA NITROGEN 18 MG/DL (7-18); CARBON DIOXIDE LEVEL 23 MEQ/L (21-32); CHLORIDE LEVEL 103 MEQ/L (98-107); CREATININE FOR GFR 0.86 MG/DL (0.70-1.30); GLOMERULAR FILTRATION RATE > 60.0 (>42); GLUCOSE, FASTING 288 MG/DL (70-100); MAGNESIUM LEVEL 2.3 MG/DL (1.8-2.4); POTASSIUM SERUM 3.6 MEQ/L (3.5-5.1); SODIUM LEVEL 134 MEQ/L (136-145)
--- NOTE | 2020-10-20 13:37 | IPN ---
PROGRESS NOTE DATE: 10/20/2020 SUBJECTIVE: Patient denies any chest pain, pressure or tightness, shortness of breath, but has not been ambulating around the room he has mainly been using the urinal. No fever or chills overnight. Complains of loss of taste and loss of smell. Saturating 93% on 3 liters nasal cannula oxygen, was 89% on room air on admission. No other issues per nursing overnight. OBJECTIVE: Vital signs: Temperature 97, pulse 68, respiratory rate 18, blood pressure 150/67, 93% on 3 liters nasal cannula. General: Awake, alert, oriented to person, place and time, answering questions appropriately. HEENT: Moist mucous membranes. Neck: No JVD, no thyromegaly. No cervical lymphadenopathy. Lungs: Diminished, bilateral crackles. Heart: S1 and S2 sinus rhythm. Abdomen: Soft, nontender, nondistended, positive bowel sounds. Extremities: No cyanosis or clubbing. LABORATORY DATA: Laboratory data and microbiology have been reviewed. Notable for pancytopenia, hyponatremia with sodium of 134 and hyperglycemia with blood glucose of 288. IMAGING STUDIES: Reviewed. ASSESSMENT: This is a 70-year-old male with a history of CLL, follows at [facility], on chronic oral chemotherapy with ibrutinib, admitted after being found to be hypoxic with patchy pulmonary consolidation right upper lobe, lower lobe, left lower lobe consistent with pneumonia and being Coronavirus positive. Status post immunoglobulin antibody infusion as outpatient. Found to be hypoxic 89% on 2 liters nasal cannula. ACTIVE ISSUES: 1. Bilateral multifocal pneumonia secondary to Coronavirus. 2. Chronic lymphocytic leukemia on maintenance chemotherapy. 3. History of atrial fibrillation status post pacemaker. 4. Hypertension. 5. CLAUDIA on CPAP. 6. BPH status post TURP. 7. Non-insulin dependent type-2 diabetes with steroid induced hyperglycemia. PLAN: I am awaiting a call from Dr. Dhillon from [facility], , regarding patient's oral chemotherapy while he is immunocompromised with multifocal pneumonia and hypoxia, whether this oral chemotherapy ibrutinib should be continued. He is currently on I.V. remdesivir, Decadron, continued on Eliquis and supplemental oxygen to keep saturations above 94%. Fingerstick glucose was 159, this morning was 288 most likely secondary to Decadron. May need to start on insulin to keep glucose less than 180 postprandial. MTDD
--- NOTE | 2020-10-20 13:56 | IPNPDOC ---
Date Seen The patient was seen on 10/20/20. Progress Note ADDENDUM TO PROGRESS NOTE: BLANK ON PROGRESS NOTE SHOULD SAY "DR LANDRY" [phone] recommended continuing immunomodulator ibritunib. if pt worsens and needs intubation, ibritunib can be liquified and pushed through ng tube. continue iv decadron and start on antibiotics. VS, I&O, 24H, Fishbone Vital Signs/I&O Vital Signs Date Time Temp Pulse Resp B/P (MAP) Pulse Ox O2 Delivery O2 Flow Rate FiO2 10/20/20 11:55 94 Room Air 10/20/20 09:25 68 150/67 10/20/20 08:00 3.0 10/20/20 06:00 97.0 18 I&O- Last 24 Hours up to 6 AM 10/20/20 06:00 Intake Total 645 ml Output Total 400 ml Balance 245 ml Laboratory Data 24H LABS Laboratory Tests 2 10/19/20 16:29: Immature Granulocyte % (Auto) 0.5, Neutrophils (%) (Auto) 75.0H, Lymphocytes (%) (Auto) 11.4L, Monocytes (%) (Auto) 12.3H, Eosinophils (%) (Auto) 0.4, Basophils (%) (Auto) 0.4, Neutrophils # (Auto) 4.2, Lymphocytes # (Auto) 0.6L, Monocytes # (Auto) 0.7, Eosinophils # (Auto) 0.0, Basophils # (Auto) 0.0, Nucleated Red Blood Cells % (auto) 0.0, Fibrinogen 831H, D-Dimer, Quantitative 1034.49H, Anion Gap 6L, Glomerular Filtration Rate > 60.0, Calcium Level 7.8L, Magnesium Level 2.2, Ferritin 1473H, Total Bilirubin 0.7, Direct Bilirubin 0.2, Aspartate Amino Transf (AST/SGOT) 47H, Alanine Aminotransferase (ALT/SGPT) 47, Alkaline Phosphatase 57, Lactate Dehydrogenase 372H, Total Creatine Kinase 69, Creatine Kinase MB < 1.0, Creatine Kinase MB Relative Index 1.45, Troponin I < 0.02, C- Reactive Protein, Quantitative 12.90H, OR-Wov-D-Type Natriuretic Peptide 85, Total Protein 6.0L, Albumin 2.7L, Albumin/Globulin Ratio 0.8, Procalcitonin 0.05, Thyroid Stimulating Hormone (TSH) 1.650, Free Thyroxine 1.30 10/19/20 16:30: Lactic Acid Level 2.0 10/19/20 23:01: Urine Color YELLOW, Urine Appearance CLEAR, Urine pH 7.0, Urine Specific [place] 1.039, Urine Protein NEGATIVE, Urine Glucose (Auto)(UA) NEGATIVE, Urine Ketones (Auto) NEGATIVE, Urine Blood NEGATIVE, Urine Nitrite NEGATIVE, Urine Bilirubin NEGATIVE, Urine Urobilinogen 2.0H, Urine Leukocyte Esterase (Auto) NEGATIVE, Urine WBC (Auto) 0, Urine RBC (Auto) 1, Urine Hyaline Casts (Auto) 0, Urine Bacteria (Auto) NEGATIVE, Urine Squamous Epithelial Cells 0, Urine Sperm (Auto) 10/19/20 23:07: Bedside Glucose (Misc Panel) 159H 10/20/20 09:00: Immature Granulocyte % (Auto) 0.6, Neutrophils (%) (Auto) 83.1H, Lymphocytes (%) (Auto) 9.4L, Monocytes (%) (Auto) 6.9, Eosinophils (%) (Auto) 0.0, Basophils (%) (Auto) 0.0, Neutrophils # (Auto) 3.0, Lymphocytes # (Auto) 0.3L, Monocytes # (Auto) 0.3, Eosinophils # (Auto) 0.0, Basophils # (Auto) 0.0, Nucleated Red Blood Cells % (auto) 0.0, Anion Gap 8, Glomerular Filtration Rate > 60.0, Calcium Level 8.0L, Magnesium Level 2.3 10/20/20 12:01: Bedside Glucose (Misc Panel) 275H CBC/BMP Laboratory Tests 10/19/20 16:29 10/20/20 09:00 Microbiology Microbiology 10/19/20 Blood Culture, Received Pending 10/19/20 Blood Culture, Received Pending SUKI CROOK MD Oct 20, 2020 13:56
[2020-10-20] MEDS: cefTRIAXone SOD 2 GM in D5W MINI-BAG PLUS 50 ML IV SCH (16:17)
[2020-10-20] MEDS: DOXYCYCLINE HYCLATE 100 MG in D5W MINI-BAG PLUS 100 ML IV SCH (17:07)
[2020-10-20] MEDS: IBRUTINIB 140 MG PO SCH (21:02)
[2020-10-21] VITALS (9 sets, daily range): BP systolic 109–137; BP diastolic 55–63; O2SAT 90–94
[2020-10-21] MEDS: REMDESIVIR 100 MG in NS 250 ML IV SCH (00:45)
[2020-10-21] MEDS: SODIUM CHLORIDE 0.9% INJ 10 ML SYR IV SCH (02:00)
[2020-10-21] MEDS: DOXYCYCLINE HYCLATE 100 MG in D5W MINI-BAG PLUS 100 ML IV SCH ×2 (03:39→15:15)
[2020-10-21] MEDS: GABAPENTIN 300 MG CAP PO SCH ×4 (05:45→21:58)
[2020-10-21 06:04] LABS: HEMATOCRIT 31.7 % (42.0-52.0); HEMOGLOBIN 10.9 g/dl (13.5-17.5); LYMPH # 0.5 10^3/uL (1.5-5.0); LYMPH % 7.9 % (24.0-44.0); MEAN CORPUSCULAR HEMOGLOBIN 31.3 pg (27.0-33.0); MEAN CORPUSCULAR HGB CONC 34.4 g/dl (32.0-36.5); MEAN CORPUSCULAR VOLUME 91.1 fl (80.0-96.0); MONO # 0.6 10^3/uL (0.0-0.8); MONO % 9.1 % (2.0-8.0); NEUTROPHILS # 5.2 10^3/uL (1.5-8.5); NEUTROPHILS % 82.4 % (36.0-66.0); PLATELET COUNT, AUTOMATED 115 10^3/uL (150-450); RED BLOOD COUNT 3.48 10^6/uL (4.30-6.10); WHITE BLOOD COUNT 6.3 10^3/uL (4.0-10.0)
[2020-10-21 06:16] LABS: INR 1.48; PROTHROMBIN TIME 18.3 SECONDS (12.7-14.5)
[2020-10-21 06:17] LABS: PARTIAL THROMBOPLASTIN TIME 41.9 SECONDS (25.9-37.0)
[2020-10-21 06:55] LABS: ALBUMIN 2.4 GM/DL (3.2-5.2); ALT/SGPT 63 U/L (12-78); BILIRUBIN,DIRECT 0.2 MG/DL (0.0-0.2); BILIRUBIN,TOTAL 0.4 MG/DL (0.2-1.0); BLOOD UREA NITROGEN 21 MG/DL (7-18); CALCIUM LEVEL 8.1 MG/DL (8.8-10.2); CARBON DIOXIDE LEVEL 22 MEQ/L (21-32); CHLORIDE LEVEL 106 MEQ/L (98-107); COMPLEMENT C4 28 MG/DL (10-40); CPK CREATINE PHOSPHOKINASE 32 U/L (39-308); CREATININE FOR GFR 0.85 MG/DL (0.70-1.30); FERRITIN 1578 NG/ML (26-388); GLOMERULAR FILTRATION RATE > 60.0 (>42); GLUCOSE, FASTING 310 MG/DL (70-100); IMMUNOGLOBULIN G 698 MG/DL (681-1648); IMMUNOGLOBULIN M 22.9 MG/DL (40-230); LDH LACTATE DEHYDROGENASE 275 U/L (87-241); MAGNESIUM LEVEL 2.3 MG/DL (1.8-2.4); NT-PRO BNP 307 PG/ML (<125); POTASSIUM SERUM 3.8 MEQ/L (3.5-5.1); SODIUM LEVEL 138 MEQ/L (136-145); TOTAL PROTEIN 5.6 GM/DL (6.4-8.2); TROPONIN I < 0.02 NG/ML (< 0.10)
[2020-10-21] MEDS: HumaLOG INSULIN (NovoLOG) PER UNIT SC SCH ×4 (07:35→20:39)
[2020-10-21] MEDS: dexameTHASONE 4 MG/ML 1ML VIAL (J1100 PER 1MG) IV SCH (07:36)
[2020-10-21] MEDS: DOCUSATE SODIUM 100MG CAPSULE PO SCH ×2 (07:38→20:36)
[2020-10-21] MEDS: INDAPAMIDE 1.25MG TABLET PO SCH (07:38)
[2020-10-21] MEDS: APIXABAN 5 MG TAB (ELIQUIS) PO SCH ×2 (07:39→20:38)
[2020-10-21] MEDS: CARVedilol 12.5 MG TAB PO SCH ×2 (07:39→20:37)
[2020-10-21] MEDS: lisinopriL 40 MG TAB PO SCH (07:39)
[2020-10-21] MEDS: allopurinoL 300 MG TAB PO SCH (07:39)
--- NOTE | 2020-10-21 10:13 | IPN ---
PROGRESS NOTE DATE: 10/21/2020 SUBJECTIVE: Patient seen and examined at the bedside. Chart has been reviewed. Patient denies any cough, fever, chills overnight. No shortness of breath or dyspnea on exertion. Patient is saturating 90 to 94% on room air. Denies any nausea, vomiting, abdominal pain. Tolerating his diet. Denies any chest pain. He admits to loss of taste and loss of smell. Input and output has been adequate. I.V. fluids have been discontinued. OBJECTIVE: VITAL SIGNS: Temperature 97.2, pulse 60, respiratory rate 18, blood pressure 133/61, 92% on room air. GENERAL: Patient is awake, alert and oriented x3, answering questions appropriately. He has no use of respiratory accessory muscles. Speaks in full sentences. No pallor or icterus, jaundice. No JVD, thyromegaly, cervical lymphadenopathy. LUNGS: Diminished breath sounds with fine crepitations. HEART: S1, S2, sinus rhythm. ABDOMEN: Soft, nontender, non-distended. Positive bowel sounds. Obese abdomen. EXTREMITIES: No cyanosis or clubbing. Positive trace edema bilaterally. LABORATORY DATA/CBC/METABOLIC PANEL/MICROBIOLOGY/ IMAGING STUDIES: Have been reviewed. ASSESSMENT AND PLAN: This is a 70-year-old admitted on 10/19/2020 with a history of CLL on maintenance Ibrutinib, atrial fibrillation with pacer, CLAUDIA on CPAP, hypertension, BPH; status post TURP, non-insulin dependent type 2 diabetes, who presents with complaints of malaise and shortness of breath for seven days. Positive for COVID despite two vaccinations and monoclonal antibody infusion, admitted due to productive cough of yellow sputum, subjective fevers, shortness of breath 89% on room air, admitted for multifocal pneumonia secondary to Coronavirus. ACTIVE ISSUES: Bilateral multifocal pneumonia secondary to Coronavirus, Coronavirus pneumonia, chronic lymphocytic leukemia on Ibrutinib, chronic atrial fibrillation; status post pacemaker, hypertension, obstructive sleep apnea on CPAP, BPH; status post TURP, non-insulin dependent type 2 diabetes with steroid induced hyperglycemia. PLAN: Dr. Dhillon from [facility] medical oncology department wanted the patient to be continued on his Ibrutinib, which is an immunomodulator also shown to be beneficial in patients with Coronavirus infection. He suggested starting on antibiotics, he is currently on day #2 of Ceftriaxone and Doxycycline continued onRemdesevir intravenously, Decadron, Eliquis and monitoring for desaturations. The patient is currently medically stable and has been doing well for the past 48 hours and may be discharged home if continues to have saturations above 94% on room air with ambulation. Patient is to complete a full seven day course of antibiotics as an outpatient and decreasing dose of Decadron. MTDD
[2020-10-21] MEDS: cefTRIAXone SOD 2 GM in D5W MINI-BAG PLUS 50 ML IV SCH (14:37)
[2020-10-21] MEDS: IBRUTINIB 140 MG PO SCH (20:41)
[2020-10-22] VITALS: BP 136/62
[2020-10-22] MEDS: REMDESIVIR 100 MG in NS 250 ML IV SCH ×2 (00:33→22:21)
[2020-10-22] MEDS: SODIUM CHLORIDE 0.9% INJ 10 ML SYR IV SCH (02:01)
[2020-10-22] MEDS: DOXYCYCLINE HYCLATE 100 MG in D5W MINI-BAG PLUS 100 ML IV SCH ×2 (03:14→16:26)
[2020-10-22 04:00] VITALS: BP 145/63
[2020-10-22 05:19] LABS: BASO % 0.1 % (0.0-1.0); EOS % 0.1 % (0.0-3.0); HEMATOCRIT 30.6 % (42.0-52.0); HEMOGLOBIN 10.7 g/dl (13.5-17.5); LYMPH # 0.8 10^3/uL (1.5-5.0); MEAN CORPUSCULAR HEMOGLOBIN 31.4 pg (27.0-33.0); MEAN CORPUSCULAR VOLUME 89.7 fl (80.0-96.0); MONO # 0.7 10^3/uL (0.0-0.8); NEUTROPHILS # 6.2 10^3/uL (1.5-8.5); NEUTROPHILS % 79.6 % (36.0-66.0); PLATELET COUNT, AUTOMATED 114 10^3/uL (150-450); RED BLOOD COUNT 3.41 10^6/uL (4.30-6.10); WHITE BLOOD COUNT 7.8 10^3/uL (4.0-10.0)
[2020-10-22 05:40] LABS: BLOOD UREA NITROGEN 21 MG/DL (7-18); CALCIUM LEVEL 8.5 MG/DL (8.8-10.2); CARBON DIOXIDE LEVEL 22 MEQ/L (21-32); CHLORIDE LEVEL 106 MEQ/L (98-107); CREATININE FOR GFR 0.91 MG/DL (0.70-1.30); GLOMERULAR FILTRATION RATE > 60.0 (>42); GLUCOSE, FASTING 283 MG/DL (70-100); MAGNESIUM LEVEL 1.9 MG/DL (1.8-2.4); POTASSIUM SERUM 3.5 MEQ/L (3.5-5.1); SODIUM LEVEL 137 MEQ/L (136-145)
[2020-10-22] MEDS: GABAPENTIN 300 MG CAP PO SCH ×3 (05:50→20:57)
[2020-10-22 08:49] VITALS: BP 138/63
[2020-10-22] MEDS: dexameTHASONE 4 MG/ML 1ML VIAL (J1100 PER 1MG) IV SCH (08:50)
[2020-10-22] MEDS: APIXABAN 5 MG TAB (ELIQUIS) PO SCH ×2 (08:50→20:42)
[2020-10-22] MEDS: INDAPAMIDE 1.25MG TABLET PO SCH (08:50)
[2020-10-22] MEDS: HumaLOG INSULIN (NovoLOG) PER UNIT SC SCH ×4 (08:50→20:57)
[2020-10-22] MEDS: CARVedilol 12.5 MG TAB PO SCH ×2 (08:51→20:42)
[2020-10-22] MEDS: allopurinoL 300 MG TAB PO SCH (08:51)
[2020-10-22] MEDS: lisinopriL 40 MG TAB PO SCH (08:51)
[2020-10-22] MEDS: DOCUSATE SODIUM 100MG CAPSULE PO SCH ×2 (08:51→20:42)
--- NOTE | 2020-10-22 10:04 | IPNPDOC ---
Date Seen The patient was seen on 10/22/20. Progress Note SUBJECTIVE: still c/o productive cough but difficult to expectorate. decreased to 88% for few seconds per pt when he was repositioning in bed. per rn, o2 sat 92 and higher and not requiring o2 w ambulation in the room. no fever or chills. OBJECTIVE: VITAL SIGNS: see below GENERAL: Patient is awake, alert and oriented x3, sitting in bed 90 degree elevation. coughing. answering questions appropriately. He has no use of respiratory accessory muscles. Speaks in full sentences. No pallor or icterus, jaundice. No JVD, thyromegaly, cervical lymphadenopathy. LUNGS: Diminished breath sounds with fine crepitations. HEART: S1, S2, sinus rhythm. ABDOMEN: Soft, nontender, non-distended. Positive bowel sounds. Obese abdomen. EXTREMITIES: No cyanosis or clubbing. Positive trace edema bilaterally. LABORATORY DATA/CBC/METABOLIC PANEL/MICROBIOLOGY/ IMAGING STUDIES: Have been reviewed. ASSESSMENT AND PLAN: This is a 70-year-old admitted on 10/19/2020 with a history of CLL on maintenance Ibrutinib, atrial fibrillation with pacer, CLAUDIA on CPAP, hypertension, BPH; status post TURP, non-insulin dependent type 2 diabetes, who presents with complaints of malaise and shortness of breath for seven days. Positive for COVID despite two vaccinations and monoclonal antibody infusion, admitted due to productive cough of yellow sputum, subjective fevers, shortness of breath 89% on room air, admitted for multifocal pneumonia secondary to Coronavirus. ACTIVE ISSUES: Bilateral multifocal pneumonia secondary to Coronavirus, -supportive care w remdesevir, decardron, ceftriaxone doxy -if needed, o2 Coronavirus pneumonia, -on decadron, remdesevir, on eliquis for afib chronic lymphocytic leukemia on Ibrutinib -per [facility] Dr. Dhillon, continue ibrutinib chronicatrial fibrillation; status post pacemaker -controlled. on eliquis hypertension, -controlled obstructive sleep apnea on CPAP, BPH; status post TURP, non-insulin dependent type 2 diabetes with steroid induced hyperglycemia. -taper steroids as outpt disposition: dc in am if stable. VS, I&O, 24H, Fishbone Vital Signs/I&O Vital Signs Date Time Temp Pulse Resp B/P (MAP) Pulse Ox O2 Delivery O2 Flow Rate FiO2 10/22/20 09:00 91 Room Air 10/22/20 08:51 60 138/63 10/22/20 08:49 96.5 20 10/20/20 08:00 3.0 I&O- Last 24 Hours up to 6 AM 10/22/20 06:00 Intake Total 2320 ml Output Total 2525 ml Balance -205 ml Laboratory Data 24H LABS Laboratory Tests 2 10/21/20 11:18: Bedside Glucose (Misc Panel) 348H 10/21/20 16:30: Bedside Glucose (Misc Panel) 446H 10/21/20 20:26: Bedside Glucose (Misc Panel) 376H 10/22/20 05:00: Immature Granulocyte % (Auto) 1.2, Neutrophils (%) (Auto) 79.6H, Lymphocytes (%) (Auto) 10.0L, Monocytes (%) (Auto) 9.0H, Eosinophils (%) (Auto) 0.1, Basophils (%) (Auto) 0.1, Neutrophils # (Auto) 6.2, Lymphocytes # (Auto) 0.8L, Monocytes # (Auto) 0.7, Eosinophils # (Auto) 0.0, Basophils # (Auto) 0.0, Nucleated Red Blood Cells % (auto) 0.0, Anion Gap 9, Glomerular Filtration Rate > 60.0, Calcium Level 8.5L, Magnesium Level 1.9 10/22/20 07:45: Bedside Glucose (Misc Panel) 259H CBC/BMP Laboratory Tests 10/22/20 05:00 Microbiology Microbiology 10/19/20 Blood Culture - Preliminary, Resulted No Growth after 48 hours. All Specime... 10/19/20 Blood Culture - Preliminary, Resulted No Growth after 48 hours. All Specime... SUKI CROOK MD Oct 22, 2020 10:04
[2020-10-22 12:41] VITALS: BP 116/57
[2020-10-22] MEDS: cefTRIAXone SOD 2 GM in D5W MINI-BAG PLUS 50 ML IV SCH (15:15)
[2020-10-22 16:29] VITALS: BP 142/66
[2020-10-22 20:00] VITALS: BP 137/61
[2020-10-22] MEDS: IBRUTINIB 140 MG PO SCH (20:41)
[2020-10-23] VITALS: BP 134/60
[2020-10-23] MEDS: SODIUM CHLORIDE 0.9% INJ 10 ML SYR IV SCH (01:44)
[2020-10-23 04:00] VITALS: BP 170/74
[2020-10-23] MEDS: GABAPENTIN 300 MG CAP PO SCH ×2 (04:46→13:05)
[2020-10-23] MEDS: DOXYCYCLINE HYCLATE 100 MG in D5W MINI-BAG PLUS 100 ML IV SCH ×2 (04:46→14:51)
[2020-10-23 04:56] LABS: BASO % 0.1 % (0.0-1.0); EOS % 0.1 % (0.0-3.0); HEMATOCRIT 31.9 % (42.0-52.0); HEMOGLOBIN 11.1 g/dl (13.5-17.5); LYMPH % 12.5 % (24.0-44.0); MEAN CORPUSCULAR HEMOGLOBIN 31.4 pg (27.0-33.0); MEAN CORPUSCULAR HGB CONC 34.8 g/dl (32.0-36.5); MEAN CORPUSCULAR VOLUME 90.1 fl (80.0-96.0); MONO # 0.7 10^3/uL (0.0-0.8); MONO % 8.9 % (2.0-8.0); NEUTROPHILS # 5.9 10^3/uL (1.5-8.5); NEUTROPHILS % 76.6 % (36.0-66.0); PLATELET COUNT, AUTOMATED 123 10^3/uL (150-450); RED BLOOD COUNT 3.54 10^6/uL (4.30-6.10); WHITE BLOOD COUNT 7.7 10^3/uL (4.0-10.0)
[2020-10-23 05:08] LABS: INR 1.37; PROTHROMBIN TIME 17.3 SECONDS (12.7-14.5)
[2020-10-23 05:09] LABS: PARTIAL THROMBOPLASTIN TIME 38.5 SECONDS (25.9-37.0)
[2020-10-23 05:26] LABS: ALBUMIN 2.6 GM/DL (3.2-5.2); ALT/SGPT 50 U/L (12-78); BILIRUBIN,DIRECT 0.2 MG/DL (0.0-0.2); BILIRUBIN,TOTAL 0.5 MG/DL (0.2-1.0); BLOOD UREA NITROGEN 20 MG/DL (7-18); CALCIUM LEVEL 8.4 MG/DL (8.8-10.2); CARBON DIOXIDE LEVEL 23 MEQ/L (21-32); CHLORIDE LEVEL 104 MEQ/L (98-107); CPK CREATINE PHOSPHOKINASE 16 U/L (39-308); CREATININE FOR GFR 0.94 MG/DL (0.70-1.30); FERRITIN 934 NG/ML (26-388); GLOMERULAR FILTRATION RATE > 60.0 (>42); GLUCOSE, FASTING 315 MG/DL (70-100); LDH LACTATE DEHYDROGENASE 231 U/L (87-241); MAGNESIUM LEVEL 1.9 MG/DL (1.8-2.4); NT-PRO BNP 164 PG/ML (<125); POTASSIUM SERUM 3.8 MEQ/L (3.5-5.1); SODIUM LEVEL 136 MEQ/L (136-145); TOTAL PROTEIN 5.6 GM/DL (6.4-8.2); TROPONIN I < 0.02 NG/ML (< 0.10)
[2020-10-23] MEDS ORDERED: PRED10TA2 PO (06:46)
[2020-10-23] MEDS ORDERED: BACI1CAP PO (06:46)
[2020-10-23] MEDS ORDERED: MOXI1TAB PO (06:46)
[2020-10-23 08:16] VITALS: BP 134/80
[2020-10-23 09:07] VITALS: BP 134/80
[2020-10-23] MEDS: CARVedilol 12.5 MG TAB PO SCH (09:07)
[2020-10-23] MEDS: HumaLOG INSULIN (NovoLOG) PER UNIT SC SCH ×3 (09:07→17:11)
[2020-10-23] MEDS: DOCUSATE SODIUM 100MG CAPSULE PO SCH (09:08)
[2020-10-23] MEDS: lisinopriL 40 MG TAB PO SCH (09:08)
[2020-10-23] MEDS: dexameTHASONE 4 MG/ML 1ML VIAL (J1100 PER 1MG) IV SCH (09:08)
[2020-10-23] MEDS: APIXABAN 5 MG TAB (ELIQUIS) PO SCH (09:08)
[2020-10-23] MEDS: allopurinoL 300 MG TAB PO SCH (09:08)
[2020-10-23] MEDS: INDAPAMIDE 1.25MG TABLET PO SCH (09:08)
[2020-10-23] MEDS: cefTRIAXone SOD 2 GM in D5W MINI-BAG PLUS 50 ML IV SCH (14:08)
[2020-10-23] MEDS ORDERED: REMDESIVIR 100 MG in NS 250 ML IV SCH (17:00)
[2020-10-23 17:19] VITALS: BP 137/65
--- NOTE | 2020-10-26 16:10 | DSES ---
DISCHARGE SUMMARY DATE OF ADMISSION: 10/19/2020 DATE OF DISCHARGE: 10/23/2020 PRIMARY DISCHARGE DIAGNOSES: 1. Multifocal coronavirus pneumonia. 2. Chronic lymphocytic leukemia. 3. Chronic atrial fibrillation with pacemaker. 4. Hypertension. 5. Obstructive sleep apnea. 6. Benign prostatic hypertrophy. 7. Non-insulin dependent diabetes type 2 with steroid-induced hyperglycemia. 8. Obesity, body mass index (BMI) of 34. DISCHARGE MEDICATIONS: - prednisone taper - Avalox 400 mg daily - Bacid one capsule with meals - allopurinol 300 mg daily - Norvasc 10 mg daily - Eliquis 5 mg twice a day - Coreg 25 mg twice a day - vitamin D 2000 units daily - gabapentin 300 every 8 hours - ibrutinib 420 mg at bedtime - indapamide 2.5 mg daily - lisinopril 40 mg daily - metformin 500 mg twice a day - multivitamin one tablet daily DISCHARGE INSTRUCTIONS: Patient is to follow up with his primary care physician within a week of discharge and his medical oncologist within a week of discharge. Call his doctor if patient develops fever, worsening shortness of breath. HOSPITAL COURSE: This is a 70-year-old patient with chronic lymphocytic leukemia (CLL) on chronic ibrutinib, received his coronavirus vaccinations and immunoglobulins when he tested positive for coronavirus, complained of productive cough of white sputum, subjective fevers and dyspnea on exertion. Patient was found to have a saturation of 89% on room air with ambulation, was admitted after being found to have bilateral multifocal pneumonia secondary to coronavirus. Patient was started on intravenous (IV) Remdesivir, Decadron, kept on his home dose of Eliquis. No supplemental oxygen was needed, since his saturations remained at 93-95% on room air. Patient was continued on his ibrutinib per his medical oncologist, Dr. Dhillon's recommendations. He did develop steroid-induced hyperglycemia with glucose ranging from 82-315, treated with insulin during the hospital stay. Patient had negative blood cultures and he was started on ceftriaxone and doxycycline per his oncologist's recommendations. Patient remained stable, with oxygen saturation of 90-95% on room air and with ambulation and was discharged home with immediate followup with his primary care doctor. PHYSICAL EXAMINATION ON DISCHARGE: VITAL SIGNS: Temperature 96.8, pulse 60, respiratory rate 20, blood pressure 134/80, 93% on room air. GENERAL: Patient is awake, alert, oriented times three, answering questions appropriately. He has no icterus or jaundice. No cyanosis. No use or respiratory accessory muscles. No pallor. LUNGS: Diminished, but clear to auscultation. HEART: S1, S2. Sinus rhythm. ABDOMEN: Obese, soft, nontender, nondistended. Positive bowel sounds. EXTREMITIES: No cyanosis. No severe clubbing. LABORATORY DATA: Laboratory data, microbiology, imaging studies, please see the chart. TIME SPENT ON DISCHARGE: Thirty minutes.
== END 2020-10-23 18:10 | disposition home or self-care (01) | DRG 177 ==
LOC: M ED 14:00 → M 4MAIN 22:22 → ENRESERV 23:27 → M ICU 10-20 15:22
PROVIDERS: ADMIT Internal Medicine; ATTEND Internal Medicine
DX: U07.1 COVID-19 (principal); J12.82 Pneumonia due to coronavirus disease 2019; C91.10 Chronic lymphocytic leukemia of B-cell type not having achieved remission; I48.20 Chronic atrial fibrillation, unspecified; Z95.0 Presence of cardiac pacemaker; I10 Essential (primary) hypertension; G47.33 Obstructive sleep apnea (adult) (pediatric); Z92.21 Personal history of antineoplastic chemotherapy; E11.65 Type 2 diabetes mellitus with hyperglycemia; M10.9 Gout, unspecified; Z79.899 Other long term (current) drug therapy; Z88.7 Allergy status to serum and vaccine

== ENCOUNTER → 2021-01-20 | Outpatient (CLI) | payer MEDICARE ==
[~2021-01-20] MED LIST changes: +BACI1CAP PO; +METF-839 PO; +MOXI1TAB PO; +PRED10TA2 PO
--- NOTE | 2021-01-21 16:42 | REP ---
INDICATION: F/U COVID PNEUMONIA COMPARISON: 10/19/2020 TECHNIQUE: PA and lateral. FINDINGS: Mediastinum and cardiac silhouette are stable. Lung castaneda demonstrate chronic prominent pulmonary vascular and interstitial markings. Previously noted areas of opacity have resolved. No effusion. No pneumothorax. IMPRESSION: Chronic appearing changes. Previously noted opacities resolved. <Electronically signed by Alfred Connelly > 01/21/21 [id number]
== END ==
LOC: M WUC 11:32
PROVIDERS: ATTEND Internal Medicine
DX: R91.8 Other nonspecific abnormal finding of lung field (principal)

== ENCOUNTER → 2021-07-04 | Outpatient (CLI) | payer MEDICARE ==
[~2021-07-04] MED LIST changes: -D31000TA2 PO; +ISOVUE-300 61% 50ML VIAL As Ordered ONE; +LIDOCAINE 1% MDV 20ML VIAL As Ordered ONE; +PROHANCE 279.3MG/ML 5ML VIAL As Ordered ONE; +VITA100093 PO
== END ==
LOC: M RADPRO 09:01
PROVIDERS: ATTEND Orthopaedic Surgery
DX: R93.7 Abnormal findings on diagnostic imaging of other parts of musculoskeletal system (principal); M19.012 Primary osteoarthritis, left shoulder
CPT/HCPCS: 23350; 73201; 77002; Q9967

== ENCOUNTER → 2021-10-20 | Outpatient (CLI) | payer MEDICARE ==
[~2021-10-20] MED LIST changes: +INDA1.253 PO; -INDA125TA PO; -ISOVUE-300 61% 50ML VIAL As Ordered ONE; -LIDOCAINE 1% MDV 20ML VIAL As Ordered ONE; -PROHANCE 279.3MG/ML 5ML VIAL As Ordered ONE
== END ==
LOC: M WUC 13:10
PROVIDERS: ATTEND Physician Assistant
DX: S90.31XA Contusion of right foot, initial encounter (principal); X58.XXXA Exposure to other specified factors, initial encounter; Y92.9 Unspecified place or not applicable

== ENCOUNTER → 2022-04-25 | Outpatient (CLI) | payer MEDICARE ==
[~2022-04-25] MED LIST changes: +PROBCAP14 PO
== END ==
LOC: M LABSMTC 11:17
PROVIDERS: ATTEND Anesthesiology
DX: Z01.818 Encounter for other preprocedural examination (principal)

== ENCOUNTER 2022-04-30 07:29 | Day surgery (SDC) | payer OTHER ==
[~2022-04-30] VITALS: Ht 182.9 cm; Wt 117.0 kg
[~2022-04-30 07:29] MED LIST changes: +NS 1,000 ML IV ONE
[2022-04-30] MEDS ORDERED: propofoL 200 MG/20 ML VIAL As Ordered ONE (07:33)
[2022-04-30] MEDS ORDERED: fentaNYL 100 MCG/2 ML INJECTION As Ordered ONE (07:33)
[2022-04-30] MEDS ORDERED: LIDOCAINE 2% 100MG/5ML SDV (FOR ANES.) As Ordered ONE (07:33)
[2022-04-30 09:55] VITALS: BP 146/74
== END 2022-04-30 10:02 | disposition home or self-care (01) ==
LOC: M OPP 07:29
PROVIDERS: ATTEND Internal Medicine Gastroenterology
DX: Z12.11 Encounter for screening for malignant neoplasm of colon (principal); K64.4 Residual hemorrhoidal skin tags; K64.8 Other hemorrhoids; K44.9 Diaphragmatic hernia without obstruction or gangrene; K21.00 Gastro-esophageal reflux disease with esophagitis, without bleeding; K29.70 Gastritis, unspecified, without bleeding; I48.91 Unspecified atrial fibrillation; G47.33 Obstructive sleep apnea (adult) (pediatric); Z99.89 Dependence on other enabling machines and devices; Z92.3 Personal history of irradiation; C95.10 Chronic leukemia of unspecified cell type not having achieved remission; Z79.84 Long term (current) use of oral hypoglycemic drugs; Z79.891 Long term (current) use of opiate analgesic; Z79.899 Other long term (current) drug therapy; Z88.1 Allergy status to other antibiotic agents; Z88.7 Allergy status to serum and vaccine
CPT/HCPCS: 88305; G0121; J3010

== ENCOUNTER → 2022-06-15 | Outpatient (REF) | payer OTHER ==
[~2022-06-15] MED LIST changes: -NS 1,000 ML IV ONE
== END ==
LOC: M SFHCDERM 16:29
PROVIDERS: ATTEND Nurse Practitioner Family
DX: R21 Rash and other nonspecific skin eruption (principal); L30.8 Other specified dermatitis

== ENCOUNTER → 2022-07-20 | Outpatient (CLI) | payer MEDICARE, OTHER | LOC: M LAB 11:30 | PROVIDERS: ATTEND Nurse Practitioner Family | DX: R21 Rash and other nonspecific skin eruption (principal) ==

== ENCOUNTER → 2022-08-27 | Outpatient (CLI) | payer OTHER, MEDICARE ==
[2022-08-27 17:29] LABS: BLOOD UREA NITROGEN 20 MG/DL (9-23); CALCIUM LEVEL 8.9 MG/DL (8.3-10.6); CARBON DIOXIDE LEVEL 29 MMOL/L (20-31); CHLORIDE LEVEL 106 MMOL/L (98-107); CREATININE FOR GFR 0.93 MG/DL (0.70-1.30); GLOMERULAR FILTRATION RATE > 60.0 (>42); GLUCOSE, FASTING 135 MG/DL (74-106); MAGNESIUM LEVEL 2.1 MG/DL (1.8-2.4); SODIUM LEVEL 142 MMOL/L (136-145)
== END ==
LOC: M WUC 14:06
PROVIDERS: ATTEND Physician Assistant
DX: I50.9 Heart failure, unspecified (principal)

== ENCOUNTER → 2022-09-13 | Day surgery (SDC) | payer OTHER, MEDICARE ==
[~2022-09-13] VITALS: Ht 182.9 cm; Wt 111.6 kg
[~2022-09-13] MED LIST changes: +GLIP10TA6 PO; +LEVOTAB10 PO; +NS 1,000 ML IV ONE; +PANT40TA29 PO; +SPIR-10 PO; +TORS10TA3 PO; +propofoL 200 MG/20 ML VIAL As Ordered ONE
[2022-09-13 08:51] VITALS: BP 156/72; TEMP 97; O2SAT 99
== END | disposition home or self-care (01) ==
LOC: M OPP 06:41
PROVIDERS: ATTEND Internal Medicine Gastroenterology
DX: Z12.11 Encounter for screening for malignant neoplasm of colon (principal); K64.4 Residual hemorrhoidal skin tags; K64.8 Other hemorrhoids; Z79.01 Long term (current) use of anticoagulants; Z79.84 Long term (current) use of oral hypoglycemic drugs; Z79.891 Long term (current) use of opiate analgesic; Z79.899 Other long term (current) drug therapy; Z88.1 Allergy status to other antibiotic agents; Z88.7 Allergy status to serum and vaccine

== ENCOUNTER → 2022-10-12 | Outpatient (CLI) | payer OTHER, MEDICARE ==
[~2022-10-12] MED LIST changes: -GABA-283 PO; +GABA-284 PO; -NS 1,000 ML IV ONE; -propofoL 200 MG/20 ML VIAL As Ordered ONE
[2022-10-12 12:11] LABS: ALBUMIN 4.2 G/DL (3.2-5.2); ALKALINE PHOSPHATASE 52 U/L (46-116); ALT/SGPT 18 U/L (7.0-40); AST/SGOT < 8 U/L (<34); BILIRUBIN,TOTAL 0.7 MG/DL (0.3-1.2); BLOOD UREA NITROGEN 33 MG/DL (9-23); CALCIUM LEVEL 8.9 MG/DL (8.3-10.6); CARBON DIOXIDE LEVEL 27 MMOL/L (20-31); CHLORIDE LEVEL 107 MMOL/L (98-107); CHOLESTEROL LEVEL 158 MG/DL (<200); CREATININE FOR GFR 1.07 MG/DL (0.70-1.30); GLOMERULAR FILTRATION RATE > 60.0 (>42); GLUCOSE, FASTING 138 MG/DL (74-106); HDL CHOLESTEROL 25.9 MG/DL (>40); LDL CHOLESTEROL 92.9 MG/DL (<100); NON-HDL-C 132.1 MG/DL; POTASSIUM SERUM 4.6 MMOL/L (3.5-5.1); SODIUM LEVEL 141 MMOL/L (136-145); TOTAL PROTEIN 7.3 G/DL (5.7-8.2); TRIGLYCERIDES LEVEL 196 MG/DL (<150)
== END ==
LOC: M WUC 09:42
PROVIDERS: ATTEND Physician Assistant
DX: I50.9 Heart failure, unspecified (principal); E78.2 Mixed hyperlipidemia

== ENCOUNTER → 2022-12-17 | Outpatient (CLI) | payer OTHER, MEDICARE ==
[2022-12-17 13:05] LABS: ALBUMIN 4.7 G/DL (3.2-5.2); ALKALINE PHOSPHATASE 49 U/L (46-116); ALT/SGPT 22 U/L (7.0-40); AST/SGOT 9 U/L (<34); BILIRUBIN,TOTAL 1.1 MG/DL (0.3-1.2); BLOOD UREA NITROGEN 31 MG/DL (9-23); CALCIUM LEVEL 9.7 MG/DL (8.3-10.6); CARBON DIOXIDE LEVEL 28 MMOL/L (20-31); CHLORIDE LEVEL 103 MMOL/L (98-107); CHOLESTEROL LEVEL 92 MG/DL (<200); CHOLESTEROL RISK RATIO 2.91 (<5); CREATININE FOR GFR 1.04 MG/DL (0.70-1.30); GLOMERULAR FILTRATION RATE > 60.0 (>42); GLUCOSE, FASTING 131 MG/DL (74-106); HDL CHOLESTEROL 31.6 MG/DL (>40); NON-HDL-C 60.4 MG/DL; POTASSIUM SERUM 4.7 MMOL/L (3.5-5.1); SODIUM LEVEL 140 MMOL/L (136-145); TOTAL PROTEIN 7.5 G/DL (5.7-8.2); TRIGLYCERIDES LEVEL 122 MG/DL (<150)
== END ==
LOC: M WUC 09:04
PROVIDERS: ATTEND Physician Assistant
DX: I50.9 Heart failure, unspecified (principal); E78.2 Mixed hyperlipidemia

== ENCOUNTER → 2023-03-21 | Outpatient (CLI) | payer OTHER ==
[~2023-03-21] MED LIST changes: +IRBE300T25 PO; -IRBE300T7 PO
[2023-03-21 13:36] LABS: HEMATOCRIT 35.1 % (42.0-52.0); HEMOGLOBIN 12.1 g/dl (13.5-17.5); MEAN CORPUSCULAR HEMOGLOBIN 31.8 pg (27.0-33.0); MEAN CORPUSCULAR HGB CONC 34.5 g/dl (32.0-36.5); MEAN CORPUSCULAR VOLUME 92.1 fl (80.0-96.0); PLATELET COUNT, AUTOMATED 103 10^3/uL (150-450); RED BLOOD COUNT 3.81 10^6/uL (4.30-6.10); WHITE BLOOD COUNT 8.1 10^3/uL (4.0-10.0)
[2023-03-21 13:43] LABS: BLOOD UREA NITROGEN 40 MG/DL (9-23); CALCIUM LEVEL 8.8 MG/DL (8.3-10.6); CARBON DIOXIDE LEVEL 26 MMOL/L (20-31); CHLORIDE LEVEL 108 MMOL/L (98-107); GLOMERULAR FILTRATION RATE > 60.0 (>42); GLUCOSE, FASTING 187 MG/DL (74-106); MAGNESIUM LEVEL 2.2 MG/DL (1.8-2.4); POTASSIUM SERUM 4.3 MMOL/L (3.5-5.1); SODIUM LEVEL 141 MMOL/L (136-145)
== END ==
LOC: M LAB 12:51
PROVIDERS: ATTEND Physician Assistant
DX: I48.0 Paroxysmal atrial fibrillation (principal); I50.32 Chronic diastolic (congestive) heart failure

== ENCOUNTER 2023-04-17 12:46 | Inpatient (IN) | payer MEDICARE, OTHER ==
[~2023-04-17] VITALS: Ht 182.9 cm; Wt 116.2 kg
[2023-04-17] MEDS ORDERED: ROSU10TA6 PO (13:15)
[2023-04-17] MEDS ORDERED: ACET-683 PO (13:18)
[2023-04-17 13:31] LABS: HEMATOCRIT 32.2 % (42.0-52.0); HEMOGLOBIN 11.1 g/dl (13.5-17.5); MEAN CORPUSCULAR HEMOGLOBIN 32.4 pg (27.0-33.0); MEAN CORPUSCULAR HGB CONC 34.5 g/dl (32.0-36.5); MEAN CORPUSCULAR VOLUME 93.9 fl (80.0-96.0); RED BLOOD COUNT 3.43 10^6/uL (4.30-6.10); WHITE BLOOD COUNT 11.8 10^3/uL (4.0-10.0)
[2023-04-17 13:34] LABS: PLATELET COUNT, AUTOMATED 88 10^3/uL (150-450)
[2023-04-17 13:44] LABS: INR 1.62; PROTHROMBIN TIME 18.7 SECONDS (12.5-14.5)
[2023-04-17 13:49] LABS: LIPASE 24 U/L (12-53)
[2023-04-17 13:52] LABS: ALBUMIN 3.7 G/DL (3.2-5.2); ALKALINE PHOSPHATASE 48 U/L (46-116); ALT/SGPT 18 U/L (7.0-40); AST/SGOT 9 U/L (<34); BILIRUBIN,DIRECT 0.6 MG/DL (<0.4); BILIRUBIN,TOTAL 1.3 MG/DL (0.3-1.2); BLOOD UREA NITROGEN 47 MG/DL (9-23); CARBON DIOXIDE LEVEL 21 MMOL/L (20-31); CHLORIDE LEVEL 108 MMOL/L (98-107); GLUCOSE, FASTING 159 MG/DL (74-106); POTASSIUM SERUM 4.6 MMOL/L (3.5-5.1); SODIUM LEVEL 139 MMOL/L (136-145); TOTAL PROTEIN 6.2 G/DL (5.7-8.2)
[2023-04-17 13:53] LABS: CK-MB VALUE MASS < 1.0 NG/ML (<3.6)
[2023-04-17] MEDS: NS 1,000 ML IV ONE ×2 (13:54→15:15)
[2023-04-17 13:56] LABS: THYROID STIMULATING HORMONE 2.879 uIU/ML (0.55-4.78)
[2023-04-17 14:01] LABS: ATYPICAL LYMPH 40 % (0-5); EOSINOPHILS 3 % (0-3); LYMPHOCYTES 7 % (16-44); MONOCYTES 11 % (0-5); NEUTROPHILS 39 % (28-66); PLATELET ESTIMATE MARKED DECREASE (NORMAL)
[2023-04-17 14:08] LABS: CPK CREATINE PHOSPHOKINASE 37 U/L (46-171)
[2023-04-17] MEDS: cefTRIAXone SOD 1 GM in D5W MINI-BAG PLUS 50 ML IV ONE (16:45)
[2023-04-17] MEDS: DOXYCYCLINE HYCLATE 100 MG in D5W MINI-BAG PLUS 100 ML IV ONE (17:22)
[2023-04-17] MEDS ORDERED: METRCRM TOP (17:29)
[2023-04-17] MEDS ORDERED: CALC500C16 PO (17:29)
[2023-04-17] MEDS ORDERED: CLIN1GEL22 TOP (17:29)
[2023-04-17] MEDS ORDERED: HOME MED LIST COMPLETE! XX SCH (17:35)
[2023-04-17 19:23] LABS: PROCALCITONIN 0.14 ng/ml
[2023-04-17] MEDS: ROSUVASTATIN 10 MG TAB (CRESTOR) PO SCH (21:09)
[2023-04-17] MEDS: APIXABAN 5 MG TAB (ELIQUIS) PO SCH (21:09)
[2023-04-17] MEDS: GABAPENTIN 300 MG CAP PO SCH (21:09)
[2023-04-17 21:30] VITALS: BP 127/69; TEMP 99.5; O2SAT 99
[2023-04-17 23:46] VITALS: BP 109/53; TEMP 99.4; O2SAT 98
[2023-04-18] VITALS (7 sets, daily range): BP systolic 125–141; BP diastolic 58–69; TEMP 98.3–100.6; O2SAT 96–98
[2023-04-18] MEDS: ACETAMINOPHEN TAB 650MG DOSE (2X325MG) PO PRN (04:14)
[2023-04-18] MEDS: DOXYCYCLINE HYCLATE 100 MG in D5W MINI-BAG PLUS 100 ML IV SCH (05:36)
[2023-04-18 06:03] LABS: BASO % 0.2 % (0.0-1.0); EOS # 0.2 10^3/uL (0.0-0.5); EOS % 2.1 % (0.0-3.0); HEMATOCRIT 28.2 % (42.0-52.0); HEMOGLOBIN 9.5 g/dl (13.5-17.5); LYMPH # 6.1 10^3/uL (1.5-5.0); LYMPH % 55.2 % (24.0-44.0); MEAN CORPUSCULAR HEMOGLOBIN 31.5 pg (27.0-33.0); MEAN CORPUSCULAR HGB CONC 33.7 g/dl (32.0-36.5); MEAN CORPUSCULAR VOLUME 93.4 fl (80.0-96.0); MONO # 0.9 10^3/uL (0.0-0.8); MONO % 7.7 % (2.0-8.0); NEUTROPHILS # 3.8 10^3/uL (1.5-8.5); NEUTROPHILS % 34.4 % (36.0-66.0); RED BLOOD COUNT 3.02 10^6/uL (4.30-6.10)
[2023-04-18 06:04] LABS: PLATELET COUNT, AUTOMATED 79 10^3/uL (150-450)
[2023-04-18 06:22] LABS: CALCIUM LEVEL 7.7 MG/DL (8.3-10.6); CREATININE FOR GFR 1.48 MG/DL (0.70-1.30); GLOMERULAR FILTRATION RATE 49.6 (>42); POTASSIUM SERUM 4.4 MMOL/L (3.5-5.1)
[2023-04-18] MEDS: glipiZIDE (GLUCOTROL) 5 MG TAB PO SCH (08:20)
[2023-04-18] MEDS: cefTRIAXone SOD 2 GM in D5W MINI-BAG PLUS 50 ML IV SCH (16:54)
[2023-04-19 03:57] VITALS: BP 137/65; TEMP 99.1; O2SAT 94
[2023-04-19 05:31] LABS: BASO % 0.3 % (0.0-1.0); EOS # 0.2 10^3/uL (0.0-0.5); EOS % 2.2 % (0.0-3.0); HEMATOCRIT 29.7 % (42.0-52.0); HEMOGLOBIN 9.9 g/dl (13.5-17.5); LYMPH % 49.7 % (24.0-44.0); MEAN CORPUSCULAR HEMOGLOBIN 31.1 pg (27.0-33.0); MEAN CORPUSCULAR HGB CONC 33.3 g/dl (32.0-36.5); MEAN CORPUSCULAR VOLUME 93.4 fl (80.0-96.0); MONO # 0.7 10^3/uL (0.0-0.8); MONO % 7.3 % (2.0-8.0); NEUTROPHILS # 4.1 10^3/uL (1.5-8.5); NEUTROPHILS % 40.2 % (36.0-66.0); RED BLOOD COUNT 3.18 10^6/uL (4.30-6.10); WHITE BLOOD COUNT 10.1 10^3/uL (4.0-10.0)
[2023-04-19 05:38] LABS: PLATELET COUNT, AUTOMATED 82 10^3/uL (150-450)
[2023-04-19 05:51] LABS: BLOOD UREA NITROGEN 33 MG/DL (9-23); CARBON DIOXIDE LEVEL 22 MMOL/L (20-31); CHLORIDE LEVEL 110 MMOL/L (98-107); CREATININE FOR GFR 1.15 MG/DL (0.70-1.30); GLOMERULAR FILTRATION RATE > 60.0 (>42); GLUCOSE, FASTING 148 MG/DL (74-106); POTASSIUM SERUM 4.2 MMOL/L (3.5-5.1); SODIUM LEVEL 140 MMOL/L (136-145)
[2023-04-19 07:35] VITALS: BP 147/67; TEMP 98.9; O2SAT 95
[2023-04-19] MEDS: FUROSEMIDE 40MG/4ML VIAL IV ONE (08:04)
[2023-04-19 11:47] VITALS: BP 124/60; TEMP 99.5; O2SAT 97
[2023-04-20 06:23] VITALS: BP 116/64; TEMP 98.8; O2SAT 96
[2023-04-20 07:06] LABS: BASO % 0.3 % (0.0-1.0); EOS # 0.2 10^3/uL (0.0-0.5); EOS % 1.8 % (0.0-3.0); HEMATOCRIT 30.3 % (42.0-52.0); HEMOGLOBIN 9.9 g/dl (13.5-17.5); LYMPH # 5.3 10^3/uL (1.5-5.0); LYMPH % 52.1 % (24.0-44.0); MEAN CORPUSCULAR HEMOGLOBIN 31.5 pg (27.0-33.0); MEAN CORPUSCULAR HGB CONC 32.7 g/dl (32.0-36.5); MEAN CORPUSCULAR VOLUME 96.5 fl (80.0-96.0); MONO # 0.8 10^3/uL (0.0-0.8); MONO % 7.3 % (2.0-8.0); NEUTROPHILS # 3.9 10^3/uL (1.5-8.5); NEUTROPHILS % 38.1 % (36.0-66.0); RED BLOOD COUNT 3.14 10^6/uL (4.30-6.10); WHITE BLOOD COUNT 10.2 10^3/uL (4.0-10.0)
[2023-04-20 07:25] LABS: PLATELET COUNT, AUTOMATED 87 10^3/uL (150-450)
[2023-04-20 09:34] LABS: BLOOD UREA NITROGEN 29 MG/DL (9-23); CALCIUM LEVEL 7.8 MG/DL (8.3-10.6); CARBON DIOXIDE LEVEL 20 MMOL/L (20-31); CHLORIDE LEVEL 112 MMOL/L (98-107); CREATININE FOR GFR 1.07 MG/DL (0.70-1.30); GLOMERULAR FILTRATION RATE > 60.0 (>42); GLUCOSE, FASTING 163 MG/DL (74-106); POTASSIUM SERUM 4.4 MMOL/L (3.5-5.1); SODIUM LEVEL 140 MMOL/L (136-145)
[2023-04-20] MEDS ORDERED: DOXY-444 PO (11:15)
[2023-04-20] MEDS ORDERED: PROBCAP14 PO (11:15)
[2023-04-20] MEDS ORDERED: CEFD300CAP PO (11:15)
[2023-04-20] MEDS ORDERED: MUCI600T31 PO (11:40)
[2023-04-20] MEDS: cefTRIAXone SOD 2 GM in D5W MINI-BAG PLUS 50 ML IV SCH (12:23)
[2023-04-20] MEDS: FUROSEMIDE 40MG/4ML VIAL IV ONE (12:23)
== END 2023-04-20 13:55 | disposition home or self-care (01) | DRG 871 ==
LOC: M ED 12:46 → M ED INP 17:49 → ENRESERV 20:27 → M PCU 21:24 → M MS5PR 04-19 20:01
PROVIDERS: ADMIT Internal Medicine Nephrology; ATTEND Internal Medicine Nephrology
DX: A41.9 Sepsis, unspecified organism (principal); J18.9 Pneumonia, unspecified organism; C91.12 Chronic lymphocytic leukemia of B-cell type in relapse; N17.9 Acute kidney failure, unspecified; C91.11 Chronic lymphocytic leukemia of B-cell type in remission; I95.9 Hypotension, unspecified; E78.5 Hyperlipidemia, unspecified; D69.6 Thrombocytopenia, unspecified; I10 Essential (primary) hypertension; G47.33 Obstructive sleep apnea (adult) (pediatric); R00.1 Bradycardia, unspecified; I44.30 Unspecified atrioventricular block; I48.91 Unspecified atrial fibrillation; I34.0 Nonrheumatic mitral (valve) insufficiency; I27.20 Pulmonary hypertension, unspecified; I89.0 Lymphedema, not elsewhere classified; Z95.0 Presence of cardiac pacemaker; N40.0 Benign prostatic hyperplasia without lower urinary tract symptoms; E11.9 Type 2 diabetes mellitus without complications; M10.9 Gout, unspecified; Z88.7 Allergy status to serum and vaccine; Z88.8 Allergy status to other drugs, medicaments and biological substances; Z79.899 Other long term (current) drug therapy

== ENCOUNTER → 2023-05-03 | Outpatient (CLI) | payer OTHER, MEDICARE ==
[~2023-05-03] MED LIST changes: +ACET-683 PO; +CALC500C16 PO; +CEFD300CAP PO; +CLIN1GEL22 TOP; +DOXY-444 PO; +METRCRM TOP; +MUCI600T31 PO; +ROSU10TA6 PO
== END ==
LOC: M WUC 13:08
PROVIDERS: ATTEND Internal Medicine
DX: J18.9 Pneumonia, unspecified organism (principal)

== ENCOUNTER → 2023-07-05 | Outpatient (CLI) | payer OTHER ==
[~2023-07-05] MED LIST changes: +DOXY-440 PO; -DOXY-444 PO; +INDA2.5T2 PO; -INDA25TAB PO; -ROSU10TA6 PO; +ROSU10TA61 PO
[2023-07-05 12:35] LABS: BLOOD UREA NITROGEN 34 MG/DL (9-23); CALCIUM LEVEL 9.1 MG/DL (8.3-10.6); CARBON DIOXIDE LEVEL 29 MMOL/L (20-31); CHLORIDE LEVEL 105 MMOL/L (98-107); CREATININE FOR GFR 1.11 MG/DL (0.70-1.30); GLOMERULAR FILTRATION RATE > 60.0 (>42); GLUCOSE, FASTING 261 MG/DL (74-106); SODIUM LEVEL 139 MMOL/L (136-145)
== END ==
LOC: M LAB 11:20
PROVIDERS: ATTEND Physician Assistant
DX: I50.32 Chronic diastolic (congestive) heart failure (principal)

== ENCOUNTER 2023-07-25 10:22 | Emergency (ER) | payer OTHER ==
[~2023-07-25] VITALS: Ht 182.9 cm; Wt 113.5 kg
[2023-07-25 11:52] LABS: HEMATOCRIT 35.3 % (42.0-52.0); HEMOGLOBIN 11.6 g/dl (13.5-17.5); MEAN CORPUSCULAR HEMOGLOBIN 31.9 pg (27.0-33.0); MEAN CORPUSCULAR HGB CONC 32.9 g/dl (32.0-36.5); RED BLOOD COUNT 3.64 10^6/uL (4.30-6.10)
[2023-07-25 11:55] LABS: PLATELET COUNT, AUTOMATED 66 10^3/uL (150-450)
[2023-07-25 11:59] LABS: WHITE BLOOD COUNT 55.4 10^3/uL (4.0-10.0)
[2023-07-25 12:13] LABS: INR 1.22; PARTIAL THROMBOPLASTIN TIME 27.5 SECONDS (24.8-34.2)
[2023-07-25 12:14] LABS: LIPASE 30 U/L (12-53)
[2023-07-25 12:17] LABS: ALBUMIN 4.2 G/DL (3.2-5.2); ALKALINE PHOSPHATASE 49 U/L (46-116); ALT/SGPT 19 U/L (7.0-40); AST/SGOT 9 U/L (<34); BILIRUBIN,DIRECT 0.3 MG/DL (<0.4); BILIRUBIN,TOTAL 0.9 MG/DL (0.3-1.2); BLOOD UREA NITROGEN 38 MG/DL (9-23); CALCIUM LEVEL 9.3 MG/DL (8.3-10.6); CARBON DIOXIDE LEVEL 28 MMOL/L (20-31); CHLORIDE LEVEL 110 MMOL/L (98-107); CK-MB VALUE MASS < 1.0 NG/ML (<3.6); CPK CREATINE PHOSPHOKINASE 34 U/L (46-171); CREATININE FOR GFR 1.22 MG/DL (0.70-1.30); GLOMERULAR FILTRATION RATE > 60.0 (>42); GLUCOSE, FASTING 122 MG/DL (74-106); MB/CK RELATIVE INDEX 2.94 (< OR =4); POTASSIUM SERUM 4.4 MMOL/L (3.5-5.1); SODIUM LEVEL 142 MMOL/L (136-145); TOTAL PROTEIN 6.5 G/DL (5.7-8.2)
[2023-07-25 12:19] LABS: FREE T4 1.15 NG/DL (0.89-1.76)
[2023-07-25] MEDS ORDERED: ISOVUE-370 76% 100ML VIAL As Ordered ONE (12:25)
[2023-07-25 12:58] LABS: ATYPICAL LYMPH 64 % (0-5); LYMPHOCYTES 29 % (16-44); MONOCYTES 1 % (0-5); NEUTROPHILS 4 % (28-66)
[2023-07-25] MEDS ORDERED: ACAL100T PO (12:59)
[2023-07-25] MEDS ORDERED: LISI40TA4 (12:59)
[2023-07-25 13:00] LABS: PLATELET ESTIMATE DECREASED (NORMAL)
[2023-07-25 13:33] LABS: CK-MB VALUE MASS < 1.0 NG/ML (<3.6)
[2023-07-25 13:34] LABS: CPK CREATINE PHOSPHOKINASE 28 U/L (46-171); MB/CK RELATIVE INDEX 3.57 (< OR =4)
[2023-07-25 14:38] LABS: CK-MB VALUE MASS < 1.0 NG/ML (<3.6)
[2023-07-25 14:39] LABS: CPK CREATINE PHOSPHOKINASE 27 U/L (46-171)
[2023-07-25] MEDS: ASPIRIN 325 MG TAB PO ONE (15:21)
[2023-07-25] MEDS ORDERED: HEPARIN DRIP 25,000 UNITS in IV 1 EA IV SCH (19:40)
[2023-07-25] MEDS ORDERED: DEXTROSE 50% 50ML SYRINGE IV PRN (19:40)
[2023-07-25] MEDS ORDERED: GLUCOSE 4 GM CHEW PO PRN (19:40)
[2023-07-25] MEDS ORDERED: GLUCAGON INJ 1MG VIAL SC PRN (19:40)
[2023-07-25] MEDS ORDERED: METOPROLOL TART 25 MG TABLET PO ONE (19:40)
[2023-07-25] MEDS ORDERED: HEPARIN SOD (PORCINE) 5000UNITS/ML 1ML VIAL/SYRINGE IV PRN (19:40)
[2023-07-25] MEDS ORDERED: lisinopriL 40MG TAB PO ONE (19:40)
[2023-07-25] MEDS ORDERED: ATORVASTATIN 20 MG TAB PO ONE (19:40)
[2023-07-25] MEDS ORDERED: NITROGLYCERIN 0.3MG SUBL TAB SL PRN (20:25)
[2023-07-25 21:15] VITALS: TEMP 98.2; O2SAT 98
[2023-07-25 21:18] VITALS: BP 169/75
[2023-07-26] MEDS ORDERED: INSULIN LISPRO (NovoLOG) PER UNIT SC SCH
[2023-07-26] MEDS ORDERED: ASPIRIN 325 MG TAB PO SCH (09:00)
[2023-07-26] MEDS ORDERED: lisinopriL 40MG TAB PO SCH (09:00)
[2023-07-26] MEDS ORDERED: ATORVASTATIN 20 MG TAB PO SCH (09:00)
[2023-07-26] MEDS ORDERED: METOPROLOL TART 25 MG TABLET PO SCH (09:00)
== END 2023-07-25 21:30 | disposition short-term general hospital (02) ==
LOC: M ED 10:22
DX: I20.0 Unstable angina (principal); D72.829 Elevated white blood cell count, unspecified; I45.9 Conduction disorder, unspecified; I10 Essential (primary) hypertension; E78.5 Hyperlipidemia, unspecified; N40.0 Benign prostatic hyperplasia without lower urinary tract symptoms; G47.33 Obstructive sleep apnea (adult) (pediatric); Z86.79 Personal history of other diseases of the circulatory system; Z95.0 Presence of cardiac pacemaker; Z79.01 Long term (current) use of anticoagulants; Z88.1 Allergy status to other antibiotic agents; Z88.7 Allergy status to serum and vaccine; Z79.2 Long term (current) use of antibiotics; Z79.811 Long term (current) use of aromatase inhibitors; Z79.899 Other long term (current) drug therapy
CPT/HCPCS: 36415; 71045; 71275; 80048; 80076; 82550; 82553; 83690; 83880; 84439; 84443; 84484; 85025; 85049; 85055; 85610; 85730; 93005; 93041; 94760; 99285; Q9967

== ENCOUNTER → 2023-08-06 | Outpatient (REF) | payer OTHER ==
[~2023-08-06] MED LIST changes: +ACAL100T PO; +LISI40TA4
== END ==
LOC: M LABWUC 16:30
PROVIDERS: ATTEND Physician Assistant
DX: I50.32 Chronic diastolic (congestive) heart failure (principal)

== ENCOUNTER → 2023-09-18 | Outpatient (CLI) | payer OTHER, MEDICARE ==
[2023-09-18 18:33] LABS: BLOOD UREA NITROGEN 30 MG/DL (9-23); CALCIUM LEVEL 9.4 MG/DL (8.3-10.6); CARBON DIOXIDE LEVEL 27 MMOL/L (20-31); CHLORIDE LEVEL 111 MMOL/L (98-107); CREATININE FOR GFR 1.12 MG/DL (0.70-1.30); GLOMERULAR FILTRATION RATE > 60.0 (>42); GLUCOSE, FASTING 91 MG/DL (74-106); POTASSIUM SERUM 4.3 MMOL/L (3.5-5.1); SODIUM LEVEL 144 MMOL/L (136-145)
== END ==
LOC: M WUC 13:30
PROVIDERS: ATTEND Internal Medicine
DX: Z51.81 Encounter for therapeutic drug level monitoring (principal); I10 Essential (primary) hypertension

== ENCOUNTER → 2023-10-10 | Outpatient (CLI) | payer OTHER | LOC: M RAD 13:51 | PROVIDERS: ATTEND Physician Assistant | DX: M21.372 Foot drop, left foot (principal); M85.872 Other specified disorders of bone density and structure, left ankle and foot ==

== ENCOUNTER → 2023-11-13 | Outpatient (CLI) | payer OTHER ==
[2023-11-13 12:59] LABS: CALCIUM LEVEL 9.3 MG/DL (8.3-10.6); CREATININE FOR GFR 1.4 MG/DL (0.70-1.30); GLOMERULAR FILTRATION RATE 52.7 (>42); POTASSIUM SERUM 4.8 MMOL/L (3.5-5.1)
== END ==
LOC: M LAB 11:50
PROVIDERS: ATTEND Physician Assistant
DX: I50.32 Chronic diastolic (congestive) heart failure (principal)

== ENCOUNTER → 2023-12-11 | Outpatient (REF) | payer OTHER ==
[~2023-12-11] MED LIST changes: +GABA-1172 PO; -GABA-282 PO; +GLIP10TA15 PO; -GLIP10TA6 PO
[2023-12-11 17:52] LABS: CALCIUM LEVEL 8.9 MG/DL (8.3-10.6); CREATININE FOR GFR 1.3 MG/DL (0.70-1.30); GLOMERULAR FILTRATION RATE 57.4 (>42); POTASSIUM SERUM 4.6 MMOL/L (3.5-5.1)
== END ==
LOC: M LABDRWCV 16:32
PROVIDERS: ATTEND Physician Assistant
DX: I50.32 Chronic diastolic (congestive) heart failure (principal)

== ENCOUNTER → 2023-12-26 | Outpatient (REF) | payer OTHER ==
[2023-12-26 17:19] LABS: ALBUMIN 4.1 G/DL (3.2-5.2); ALKALINE PHOSPHATASE 46 U/L (40-129); ALT/SGPT 21 U/L (7.0-40); AST/SGOT < 8 U/L (<34); BILIRUBIN,TOTAL 0.5 MG/DL (0.3-1.2); BLOOD UREA NITROGEN 37 MG/DL (9-23); CALCIUM LEVEL 9.3 MG/DL (8.3-10.6); CARBON DIOXIDE LEVEL 25 MMOL/L (20-31); CHLORIDE LEVEL 116 MMOL/L (98-107); CHOLESTEROL LEVEL 81 MG/DL (<200); CHOLESTEROL RISK RATIO 3.41 (<5); CREATININE FOR GFR 1.28 MG/DL (0.70-1.30); GLOMERULAR FILTRATION RATE 58.5 (>42); GLUCOSE, FASTING 142 MG/DL (74-106); HDL CHOLESTEROL 23.7 MG/DL (>40); LDL CHOLESTEROL 35.5 MG/DL (<100); NON-HDL-C 57.3 MG/DL; SODIUM LEVEL 146 MMOL/L (136-145); TOTAL PROTEIN 6.5 G/DL (5.7-8.2); TRIGLYCERIDES LEVEL 109 MG/DL (<150)
[2023-12-26 17:42] LABS: CREATININE, URINE 38.9 MG/DL
[2023-12-26 17:43] LABS: MAU/CREAT RATIO 15.4 MCG/MG (0.0-30.0)
== END ==
LOC: M SFHCCAPE 08:58
PROVIDERS: ATTEND Physician Assistant Medical
DX: E11.9 Type 2 diabetes mellitus without complications (principal); E78.5 Hyperlipidemia, unspecified

== ENCOUNTER → 2024-02-27 | Outpatient (REF) | payer OTHER ==
[2024-02-27 18:00] LABS: HEMATOCRIT 26.5 % (42.0-52.0); HEMOGLOBIN 8.2 g/dl (13.5-17.5); MEAN CORPUSCULAR HGB CONC 30.9 g/dl (32.0-36.5); RED BLOOD COUNT 2.41 10^6/uL (4.30-6.10)
[2024-02-27 18:23] LABS: ALBUMIN 4.1 G/DL (3.2-5.2); ALKALINE PHOSPHATASE 60 U/L (40-129); ALT/SGPT 19 U/L (7.0-40); AST/SGOT < 8 U/L (<34); BILIRUBIN,TOTAL 0.6 MG/DL (0.3-1.2); BLOOD UREA NITROGEN 53 MG/DL (9-23); CARBON DIOXIDE LEVEL 26 MMOL/L (20-31); CHLORIDE LEVEL 113 MMOL/L (98-107); CHOLESTEROL LEVEL 75 MG/DL (<200); CHOLESTEROL RISK RATIO 3.88 (<5); CREATININE FOR GFR 1.49 MG/DL (0.70-1.30); GLOMERULAR FILTRATION RATE 49.1 (>42); GLUCOSE, FASTING 110 MG/DL (74-106); HDL CHOLESTEROL 19.3 MG/DL (>40); LDL CHOLESTEROL 37.5 MG/DL (<100); MAGNESIUM LEVEL 2.5 MG/DL (1.8-2.4); NON-HDL-C 55.7 MG/DL; POTASSIUM SERUM 5.3 MMOL/L (3.5-5.1); SODIUM LEVEL 141 MMOL/L (136-145); TOTAL PROTEIN 6.4 G/DL (5.7-8.2); TRIGLYCERIDES LEVEL 91 MG/DL (<150)
[2024-02-27 19:24] LABS: PLATELET COUNT, AUTOMATED 86 10^3/uL (150-450)
[2024-02-28 14:46] LABS: WHITE BLOOD COUNT 59.8 10^3/uL (4.0-10.0)
== END ==
LOC: M LABDRWCV 16:42
PROVIDERS: ATTEND Physician Assistant
DX: I48.0 Paroxysmal atrial fibrillation (principal); I50.32 Chronic diastolic (congestive) heart failure; E78.2 Mixed hyperlipidemia

== ENCOUNTER → 2024-04-01 | Outpatient (REF) | payer OTHER ==
[2024-04-01 17:09] LABS: HEMATOCRIT 25.2 % (42.0-52.0); HEMOGLOBIN 7.8 g/dl (13.5-17.5); MEAN CORPUSCULAR HEMOGLOBIN 33.1 pg (27.0-33.0); MEAN CORPUSCULAR VOLUME 106.8 fl (80.0-96.0); RED BLOOD COUNT 2.36 10^6/uL (4.30-6.10)
[2024-04-01 17:24] LABS: BLOOD UREA NITROGEN 28 MG/DL (9-23); CALCIUM LEVEL 8.4 MG/DL (8.3-10.6); CARBON DIOXIDE LEVEL 24 MMOL/L (20-31); CHLORIDE LEVEL 109 MMOL/L (98-107); CREATININE FOR GFR 1.17 MG/DL (0.70-1.30); GLOMERULAR FILTRATION RATE > 60.0 (>42); GLUCOSE, FASTING 208 MG/DL (74-106); MAGNESIUM LEVEL 2.2 MG/DL (1.8-2.4); SODIUM LEVEL 142 MMOL/L (136-145)
[2024-04-01 17:59] LABS: PLATELET COUNT, AUTOMATED 85 10^3/uL (150-450)
== END ==
LOC: M LABDRWCV 16:28
PROVIDERS: ATTEND Physician Assistant
DX: I48.0 Paroxysmal atrial fibrillation (principal); I50.32 Chronic diastolic (congestive) heart failure

== ENCOUNTER → 2024-05-22 | Outpatient (CLI) | payer OTHER | LOC: M CARPUL 11:28 | PROVIDERS: ATTEND Physician Assistant | DX: R06.02 Shortness of breath (principal); I35.2 Nonrheumatic aortic (valve) stenosis with insufficiency; I50.30 Unspecified diastolic (congestive) heart failure; I08.0 Rheumatic disorders of both mitral and aortic valves; I37.1 Nonrheumatic pulmonary valve insufficiency; Z95.0 Presence of cardiac pacemaker ==

== ENCOUNTER → 2024-06-30 | Outpatient (REF) | payer OTHER ==
[~2024-06-30] MED LIST changes: +AMLO-751 PO; -AMLO10TA PO; -FLOM0.4C39 PO; +TAMS-18 PO
[2024-06-30 17:14] LABS: ALBUMIN 4.2 G/DL (3.2-5.2); BILIRUBIN,TOTAL 0.9 MG/DL (0.3-1.2); CALCIUM LEVEL 9.2 MG/DL (8.3-10.6); CREATININE FOR GFR 0.97 MG/DL (0.70-1.30); GLOMERULAR FILTRATION RATE 81.9 (>42); TOTAL PROTEIN 6.8 G/DL (5.7-8.2)
[2024-06-30 17:20] LABS: BASO % 0.3 % (0.0-1.0); EOS % 0.5 % (0.0-3.0); HEMATOCRIT 33.8 % (42.0-52.0); HEMOGLOBIN 11.2 g/dl (13.5-17.5); LYMPH # 0.5 10^3/uL (1.5-5.0); LYMPH % 14.3 % (24.0-44.0); MEAN CORPUSCULAR HEMOGLOBIN 32.8 pg (27.0-33.0); MEAN CORPUSCULAR HGB CONC 33.1 g/dl (32.0-36.5); MEAN CORPUSCULAR VOLUME 99.1 fl (80.0-96.0); MONO # 0.7 10^3/uL (0.0-0.8); MONO % 17.5 % (2.0-8.0); NEUTROPHILS # 2.5 10^3/uL (1.5-8.5); NEUTROPHILS % 67.1 % (36.0-66.0); PLATELET COUNT, AUTOMATED 114 10^3/uL (150-450); RED BLOOD COUNT 3.41 10^6/uL (4.30-6.10); WHITE BLOOD COUNT 3.8 10^3/uL (4.0-10.0)
== END ==
LOC: M SFHCCAPE 09:28
PROVIDERS: ATTEND Physician Assistant Medical
DX: Z00.00 Encounter for general adult medical examination without abnormal findings (principal); E11.9 Type 2 diabetes mellitus without complications

== ENCOUNTER → 2024-12-30 | Outpatient (REF) | payer OTHER ==
[~2024-12-30] MED LIST changes: +LISI40TA10; +LISI40TA10 PO; -LISI40TA4; -LISI40TA4 PO; -ROSU10TA61 PO; +ROSU10TA90 PO
[2024-12-30 18:21] LABS: PSA SCREENING 0.69 NG/ML (< 4.00)
[2024-12-30 18:24] LABS: MALB URINE SIEMENS 11.0 MG/L
[2024-12-30 18:27] LABS: CREATININE, URINE 61.5 MG/DL; MAU/CREAT RATIO 17.8 MCG/MG (0.0-30.0)
[2024-12-30 18:28] LABS: ALT/SGPT 28.0 U/L (7.0-40); AST/SGOT 24.0 U/L (<34); CALCIUM LEVEL 9.2 MG/DL (8.3-10.6); CARBON DIOXIDE LEVEL 32.0 MMOL/L (20-31); CHLORIDE LEVEL 102.0 MMOL/L (98-107); CREATININE FOR GFR 1.11 MG/DL (0.70-1.30); GLOMERULAR FILTRATION RATE 69.3 (>42); MAGNESIUM LEVEL 2.2 MG/DL (1.8-2.4); POTASSIUM SERUM 4.1 MMOL/L (3.5-5.1); SODIUM LEVEL 145.0 MMOL/L (136-145)
[2024-12-30 18:40] LABS: ESTIMATED AVERAGE GLUCOSE 166.0 MG/DL (60-110)
== END ==
LOC: M SFHCCAPE 08:58
PROVIDERS: ATTEND Physician Assistant Medical
DX: E11.9 Type 2 diabetes mellitus without complications (principal); I50.9 Heart failure, unspecified; Z12.5 Encounter for screening for malignant neoplasm of prostate
CPT/HCPCS: 80053; 82043; 83036; 83735; G0103